=== PATIENT | male | born 1975 | race Caucasian/White ===

== ENCOUNTER → 2020-08-27 09:50 | Outpatient (CLI) | payer OTHER, SELFPAY ==
--- NOTE | 2020-08-27 09:56 | XR_ITS ---
PROCEDURE: XR CERVICAL SPINE 4V CLINICAL INDICATION: neck pain Right-sided neck pain COMPARISON: No exams were available for comparison FINDINGS: No fracture or dislocation. No lytic or blastic change. There is normal mineralization. Normal alignment. There is degenerative disc disease at C5-C6. There is foraminal narrowing on the right at C5-C6 from uncovertebral and facet hypertrophy. Other findings:None. IMPRESSION: Degenerative disc disease and right-sided foraminal narrowing at C5-C6 Dictated by: Inder Toledo MD 08/27/2020 11:10 Inder Toledo MD in [place] 08/27/2020 11:10
--- NOTE | 2020-08-27 09:56 | XR_ITS ---
PROCEDURE: XR CHEST 2V CLINICAL HISTORY: dyspnea, smoker COMPARISON: CR [id number] [id number] VIEWS from 10/13/2013 CR CXR CHEST(2 VIEWS-NOT PORTABLE) from 10/13/2013 FINDINGS: The cardiomediastinal silhouette and pulmonary vascularity are within normal limits. The lungs are clear without infiltrates, suspicious nodules, or pleural effusions. COPD with emphysematous changes which has slightly progressed compared to the previous exam. No acute bony anomalies. IMPRESSION: COPD with emphysema which appears progressed Dictated by: Inder Toledo MD 08/27/2020 11:08 Inder Toledo MD in [place] 08/27/2020 11:08
[2020-08-27 16:19] LABS: Basophils # 0.1 K/mm3 (0-0.2); Basophils % 0.6 % (0.1-2.0); Eosinophils # 0.1 K/mm3 (0.0-0.4); Eosinophils % 1.5 % (0.1-12.0); Hematocrit 45.5 % (42.0-52.0); Hemoglobin 15.3 g/dL (14.1-18.0); Lymphocytes # 2.7 K/mm3 (0.7-4.5); Lymphocytes % 27.8 % (10-50); Mean Corpuscular HGB Conc 33.5 g/dL (31.8-35.4); Mean Corpuscular Hemoglobin 28.2 pg (27.0-31.2); Mean Corpuscular Volume 84.2 fl (80-94); Mean Platelet Volume 9.7 fl (7.4-10.4); Monocytes # 0.4 K/mm3 (0.1-1.0); Monocytes % 4.1 % (1.7-9.3); Neutrophils # 6.4 K/mm3 (1.8-7.8); Platelet Count 297 K/mm3 (142-424); Red Cell Distribution Width 14.1 % (11.5-17.5); White Blood Count 9.6 K/mm3 (4.8-10.8)
[2020-08-27 16:51] LABS: Chloride 103 mmol/L (98-107)
[2020-08-27 16:52] LABS: Sodium 141 mmol/L (136-145)
[2020-08-27 16:53] LABS: Hemoglobin A1C 5.5 % (4.0-6.0)
[2020-08-27 16:54] LABS: Alanine Aminotransferase 29 U/L (12-78); Alkaline Phosphatase 105 U/L (38-126); Aspartate Amino Transferase 31 U/L (17-59); Bilirubin,Total 0.4 mg/dl (0.2-1.3); Blood Urea Nitrogen 13 mg/dl (9-20); Carbon Dioxide 25 mmol/L (22.0-30.0); Estimated Glomerular Filt Rate 123 ml/min (>60); GFR (African American) 148 ML/MIN (>60)
[2020-08-27 16:55] LABS: Albumin Level 4.8 g/dl (3.5-5.0); Albumin/Globulin Ratio 1.3 (1.1-1.8); Calcium 9.5 mg/dl (8.4-10.2); Chol/HDL Ratio 5.7 (1-3.5); Cholesterol 147 mg/dl (140-200); Globulin 3.8 g/dL (1.3-3.2); Glucose 132 mg/dl (74-100); HDL Cholesterol 26 mg/dl (40-60); Total Protein,Serum 8.6 g/dl (6.3-8.2); Triglycerides 164 mg/dl (30-150); VLDL Cholesterol 33 mg/dL (0-40)
[2020-08-27 17:06] LABS: Direct LDL Cholesterol 83.95 mg/dL (100-129)
[2020-08-27 17:24] LABS: Thyroid Stimulating Hormone 0.98 uIU/mL (0.465-4.68)
[2020-08-27 19:46] LABS: Free T4 (Free Thyroxine) 1.19 ng/dl (0.78-2.19)
[2020-08-27 21:19] LABS: 25-OH Vitamin D, Total 40.8 ng/mL (30-100)
[2020-08-29 08:51] LABS: HIV Screen 4th Generation wRfx Non Reactive (Non Reactive)
[2020-08-29 12:41] LABS: Hep A Ab, IgM Negative (Negative); Hepatitis B Core Antibody IgM Negative (Negative); Hepatitis B Surface Antigen Negative (Negative); Hepatitis C Antibody >11.0 s/co ratio (0.0-0.9)
== END ==
PROVIDERS: PCP Physician Assistant; Visit Provider Physician Assistant
DX: R07.9 Chest pain, unspecified (principal); M54.2 Cervicalgia; R06.00 Dyspnea, unspecified; R51.9 Headache, unspecified; R73.9 Hyperglycemia, unspecified
CPT/HCPCS: 71046; 72050; 80053; 80061; 80074; 82306; 83036; 84439; 84443; 85025; 86703; G0432

== ENCOUNTER → 2020-09-04 09:26 | Outpatient (CLI) | payer OTHER, SELFPAY ==
--- NOTE | 2020-09-04 09:27 | CA_ITS ---
APPROVED REPORT EXAM: Comprehensive 2D, Doppler, and color-flow Echocardiogram Financial Reporting Accountant: Kristen Olea CRT Ht: 5 ft 8 in Wt: 120lbs BSA: 1.64 BP: 102/76 mmHg Indications: Chest Pain, IV DRUG USE HISTORY, SMOKER 2D Dimensions LVOT 2.18 cm (M/F) 1.5-2.5 LA Volume 29.50 mL LA Volume Index 17.90 mL/m2 (M/F) 16-34 M-Mode Dimensions RVDd 2.90 cm (0.9-2.6) LA Diam 2.55 cm (1.9-4.0) LVDd 4.71 cm (3.5-5.7) Ao Diam 4.34 cm (2.0-3.7) LVDs 3.06 cm (3.5-5.7) IVSd 0.56 cm (0.6-1.1) PWd 0.72 cm (0.6-1.1) EF (Teich) 64.30% FS 35.00% EDV (Teich) 102.90 mL TAPSE 1.98 (<1.7) ESV (Teich) 36.70 mL LV Diastology E Decel Time 287.00 (160-240 msec) E/A Ratio 1.38 MED E' 13.40 (< 7 cm/sec) MED A' 11.00 cm/s E'/MED E' Ratio 7.03 (>14) LAT E' 15.30 (<10 cm/sec) LAT A' 9.40 cm/s E/LAT E' Ratio 6.16 (>14) Aortic Valve AO Peak GR. 8.20 mmHg Mitral Valve MV E Max Mario. 94.00 (40-130 cm/s) MV A Velocity 69.00 (40-130 cm/s) E/A Ratio 1.38 MV Decel. Time 287.00 (160-240 ms) MV PHT 84.00 ms Tricuspid Valve TR P. Velocity 167.00 cm/s RAP Estimate 10.00 mmHg RVSP 21.20 mmHg Left Ventricle Left atrium is normal size, left ventricle is normal size, there is no concentric left ventricular hypertrophy, visually estimated ejection fraction 55% with no regional wall motion abnormality, diastolic parameters are within normal range. Right Ventricle Right atrium and right ventricle are normal size and contractility. Aortic Valve Aortic valve is minimally thickened and fibrosed, there is no aortic stenosis or aortic insufficiency. Mitral Valve Mitral valve grossly normal, there is trace mitral regurgitation. Tricuspid Valve Cuspid valve grossly normal, there is trace tricuspid regurgitation, tricuspid regurgitation jet velocity is inadequate for calculation of the right ventricular systolic pressure. Pulmonic Valve Pulmonic valve is poorly visualized. Great Vessels Aortic root is normal size. Pericardium No significant pericardial effusion noted. Conclusion 1. Normal left ventricular size, preserved left ventricular systolic function, visually estimated ejection fraction 55% with no regional wall motion abnormality, diastolic parameters are within normal range. 2. Trace mitral and tricuspid regurgitation. 3. No significant pericardial effusion noted. Electronically signed by : Terry Kolb, 09/04/2020 14:51:56
--- NOTE | 2020-09-04 09:27 | CA_ITS ---
APPROVED REPORT Exam: Exercise Treadmill Technologist: Clarissa Olivares, Ht: 5 ft 8 in Wt: 120 lbs BSA: 1.64 m2 HR: 75 bpm BP: 113/63 mmHg Rhythm: NSR, FREQUENT PAC IN A BIGEMINAL PATTERN (INTERMITTENT), RIGHTWARD AXIS, LVH Medical History Medications: Mobic,,,,, ZYRTEC,,,,, BuPRenorphin-naloxone,,,,, Allergies: PCN Cardiac Risk Factors: FHX of CAD Stress Test Details Test: Wilmar HR Resting HR: 92 bpm Max Heart Rate (APMHR): 176.349629 bpm Max HR Achieved: 120 bpm Target HR (85% APMHR): 149.429097 bpm % of APMHR: 68.18 Recovery HR: 72 bpm BP Resting BP: 117/80 mmHg Max BP: 148/82 mmHg Recovery BP: 118.0/74.0 mmHg ECG Resting ECG: NSR, FREQUENT PAC IN A BIGEMINAL PATTERN (INTERMITTENT), RIGHTWARD AXIS, LVH Clinical Exercise duration: 04:07 min Highest Stage Achieved: Exercise capacity: 7.0 METs Stress ECG Conclusion EXERCISED 4:07 ON WILMAR PROTOCOL, STOPPING DUE TO SOA. MAX WO=602. 68% OF PM. 148/82 MAX BP. METS=7.0. TEST STOPPED DUE TO SOA. PT HAD NO CP. IN RECOVERY THERE ARE FREQUENT PACS WITH PERIODS OF ATRIAL BIGEMENY ANF TRIGEMINY. RARE PVC, ALSO IN RECOVERY. 0.5-0.75MM SLIGHTLY UPSLOPING ST DEPRESSION INFERIORLY AND 0.5 MM LATERALLY IN RECOVERY. WITHIN NORMAL GXT TO HR ACHIEVED (68% OF PM) POOR EXERCISE TOLERANCE. GXT ONLY (NO IMAGING) Test Summary RECOVERY 05:19 0.0 0.0 71 . 118/ 74 . . REST . . . . . . . Standing REST 04:02 0.0 0.0 92 . 117/ 80 . . Stage 1 01:00 10.0 1.7 97 . . . . Stage 1 02:00 10.0 1.7 106 . . . . Stage 1 03:00 10.0 1.7 105 . 146/ 76 . . Stage 2 01:00 12.0 2.5 117 . . . . Stage 2 01:07 12.0 0.0 115 . . . Stop exercise at 04:07 RECOVERY 01:00 0.0 0.0 90 . 148/ 82 . . RECOVERY 02:00 0.0 0.0 65 . 148/ 82 . . RECOVERY 03:00 0.0 0.0 67 . 141/ 76 . . RECOVERY 04:00 0.0 0.0 75 . 128/ 67 . . RECOVERY 05:00 0.0 0.0 68 . 128/ 67 . . RECOVERY 05:19 0.0 0.0 71 . 118/ 74 . . Electronically signed by : Jorge Gonzalez, 09/04/2020 21:30:57
== END ==
PROVIDERS: PCP Physician Assistant; Visit Provider Physician Assistant
DX: R07.9 Chest pain, unspecified (principal); G47.33 Obstructive sleep apnea (adult) (pediatric); R06.83 Snoring; G47.10 Hypersomnia, unspecified
CPT/HCPCS: 93017; 93306; 95806

== ENCOUNTER → 2020-09-15 11:17 | Outpatient (CLI) | payer OTHER, SELFPAY ==
[2020-09-17 19:48] LABS: HCV Genotype Charge YES; Hepatitis C Genotype 1a (.)
== END ==
PROVIDERS: Visit Provider Physician Assistant
DX: R76.8 Other specified abnormal immunological findings in serum (principal)
CPT/HCPCS: 36415; 87522; 87902

== ENCOUNTER 2020-09-22 08:00 | Outpatient (RCR) | payer OTHER, SELFPAY ==
--- NOTE | 2020-09-05 08:48 | HMH.PTOPEV ---
PT Outpatient Evaluation Rehab PT Outpatient Evaluation Start: 09/05/20 07:56 Freq: Status: Active Protocol: Document 09/05/20 07:56 FIORELLA (Rec: 09/05/20 08:48 [id number]) Electronically Signed By Jad Alcaraz, JUAN 09/05/20 07:56 Outpatient Therapy Subjective History Subjective History Pt. is a 44 year old male who presents to outpatient PT clinic w/ c/o of subacute on chronic and intermittent/activity dependent R-sided cervical/ shldr./RUE P! that has progressively worsened 1 month ago. Pt. reports initial onset of symptoms was 3 years ago after falling out of a barn, but states symptoms went away. Pt. reports symptoms have worsened in the last month and blames what he has to do at work. 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 Pt. also complains of GUTIERREZ's when symptoms worsen. Pt. describes symptoms as a sharp ache in the shoulder w/ tingling that shoots all the way down to the digits. Pt. reports symptoms worsen w/ lifting weighted objects, dressing, and driving. Pt. reports having some symptom relief w/ OTC Tylenol. Recent diagnostic imaging positive for cervical DDD w/ right-sided foraminal narrowing at C5-C6. Pt. denies having injections for current pathology. Pt. RTMD next wk. for a periodic check-up. Current medications include Tylenol and Suboxone. PMH includes pre-hypotensive. Chief Complaint Pain,Paresthesia,Weakness, Decreased Business Analysis Specialist Strength Symptom Type Ache,Sharp,Stabbing,Numbness, Tingling,Shooting Symptoms Relieved By Rest/Positioning,OTC Meds Symptoms Aggravated By Bending/Stooping,Physical Activity,Twisting,Lifting Prior Functional Cuevas
== END 2020-10-20 15:10 | disposition home or self-care (01) ==
LOC: PT.CARL 08:00
PROVIDERS: PCP Physician Assistant; Visit Provider Physician Assistant
DX: M54.12 Radiculopathy, cervical region (principal)
CPT/HCPCS: 97012; 97110; 97140; 97163

== ENCOUNTER → 2020-09-24 08:05 | Outpatient (CLI) | payer OTHER, SELFPAY ==
[2020-09-24 08:54] LABS: Basophils # 0.1 K/mm3 (0-0.2); Basophils % 0.9 % (0.1-2.0); Eosinophils # 0.4 K/mm3 (0.0-0.4); Eosinophils % 6.7 % (0.1-12.0); Hematocrit 39.3 % (42.0-52.0); Hemoglobin 13.2 g/dL (14.1-18.0); Lymphocytes # 3.2 K/mm3 (0.7-4.5); Lymphocytes % 48.9 % (10-50); Mean Corpuscular HGB Conc 33.6 g/dL (31.8-35.4); Mean Corpuscular Hemoglobin 27.8 pg (27.0-31.2); Mean Corpuscular Volume 82.7 fl (80-94); Mean Platelet Volume 9.3 fl (7.4-10.4); Monocytes # 0.3 K/mm3 (0.1-1.0); Monocytes % 4.8 % (1.7-9.3); Neutrophils # 2.6 K/mm3 (1.8-7.8); Neutrophils % 38.7 % (37.0-80.0); Platelet Count 192 K/mm3 (142-424); Red Blood Count 4.75 M/mm3 (4.60-6.20); Red Cell Distribution Width 13.8 % (11.5-17.5); White Blood Count 6.6 K/mm3 (4.8-10.8)
[2020-09-24 09:01] LABS: Prothrombin Time 11.3 seconds (10.1-12.5)
[2020-09-24 09:02] LABS: INR 0.95 (0.9-1.1)
[2020-09-24 09:20] LABS: Chloride 109 mmol/L (98-107); Potassium 4.4 mmoL/L (3.5-5.1); Sodium 140 mmol/L (136-145)
[2020-09-24 09:22] LABS: Alanine Aminotransferase 24 U/L (12-78); Alkaline Phosphatase 90 U/L (38-126); Anion Gap 13.4 mEq/L (5-15); Aspartate Amino Transferase 30 U/L (17-59); Bilirubin,Total 0.3 mg/dl (0.2-1.3); Blood Urea Nitrogen 15 mg/dl (9-20); Carbon Dioxide 22 mmol/L (22.0-30.0); Estimated Glomerular Filt Rate 146 ml/min (>60); GFR (African American) 177 ML/MIN (>60)
[2020-09-24 09:23] LABS: Albumin Level 4.4 g/dl (3.5-5.0); Albumin/Globulin Ratio 1.3 (1.1-1.8); Calcium 9.3 mg/dl (8.4-10.2); Globulin 3.5 g/dL (1.3-3.2); Glucose 112 mg/dl (74-100); Total Protein,Serum 7.9 g/dl (6.3-8.2)
[2020-09-25 06:11] LABS: HIV Screen 4th Generation wRfx Non Reactive (Non Reactive)
[2020-09-25 10:37] LABS: Hep A Ab, IgM Negative (Negative); Hep A Ab, Total Negative (Negative); Hep B Core Ab, Total Negative (Negative); Hep B Surface Ab, Qual Non Reactive (.); Hepatitis B Surface Antigen Negative (Negative); Hepatitis C Antibody >11.0 s/co ratio (0.0-0.9)
[2020-09-26 06:19] LABS: ALT (SGPT) P5P 25 IU/L (0-55); Alpha 2-Macroglobulins, Qn 187 mg/dL (110-276); Apolipoprotein A-1 95 mg/dL (101-178); Bilirubin, Total 0.2 mg/dL (0.0-1.2); Fibrosis Score 0.14 (0.00-0.21); GGT 23 IU/L (0-65); Haptoglobin 145 mg/dL (23-355); Necroinflammat Activity Grade A0-No activity (.); Necroinflammat Activity Score 0.09 (0.00-0.17)
[2020-09-28 00:05] LABS: HCV Genotype Charge YES; Hepatitis C Genotype 1a (.)
== END ==
PROVIDERS: Visit Provider Physician Assistant
DX: B19.20 Unspecified viral hepatitis C without hepatic coma (principal)
CPT/HCPCS: 36415; 80053; 81596; 85025; 85610; 86703; 86704; 86706; 86708; 87340; 87380; 87522; 87902; G0432

== ENCOUNTER 2020-10-18 06:04 | Emergency (ER) | payer OTHER, SELFPAY ==
[2020-10-18 06:20] VITALS: BP 123/88; PULSE 80; RESP 18; TEMP 37.7; O2SAT 100; BMI 18.4
[2020-10-18 07:26] LABS: Basophils % 0.3 % (0.1-2.0); Eosinophils % 0.1 % (0.1-12.0); Hematocrit 46.6 % (42.0-52.0); Hemoglobin 14.9 g/dL (14.1-18.0); Lymphocytes # 1.6 K/mm3 (0.7-4.5); Lymphocytes % 9.8 % (10-50); Mean Corpuscular HGB Conc 32.1 g/dL (31.8-35.4); Mean Corpuscular Volume 87.3 fl (80-94); Monocytes # 0.4 K/mm3 (0.1-1.0); Monocytes % 2.7 % (1.7-9.3); Neutrophils # 14.3 K/mm3 (1.8-7.8); Neutrophils % 87.1 % (37.0-80.0); Platelet Count 426 K/mm3 (142-424); Red Blood Count 5.34 M/mm3 (4.60-6.20); Red Cell Distribution Width 13.5 % (11.5-17.5); White Blood Count 16.4 K/mm3 (4.8-10.8)
[2020-10-18 07:28] LABS: Chloride 105 mmol/L (98-107)
[2020-10-18 07:29] LABS: Potassium 3.6 mmoL/L (3.5-5.1); Sodium 144 mmol/L (136-145)
[2020-10-18 07:31] LABS: Alanine Aminotransferase 16 U/L (12-78); Alkaline Phosphatase 121 U/L (38-126); Amylase 68 U/L (30-110); Aspartate Amino Transferase 29 U/L (17-59); Bilirubin,Total 0.5 mg/dl (0.2-1.3); Blood Urea Nitrogen 15 mg/dl (9-20); Carbon Dioxide 24 mmol/L (22.0-30.0); Creatinine Clearance Estimated 108 mL/min (50-200); Estimated Glomerular Filt Rate 123 ml/min (>60); GFR (African American) 148 ML/MIN (>60)
[2020-10-18 07:32] LABS: Albumin Level 4.9 g/dl (3.5-5.0); Calcium 9.8 mg/dl (8.4-10.2); Globulin 4.7 g/dL (1.3-3.2); Glucose 154 mg/dl (74-100); Lactic Acid 1.1 mmol/L (0.7-2.1); Lipase 30 U/L (23-300); Total Protein,Serum 9.6 g/dl (6.3-8.2)
[2020-10-18 07:33] LABS: Ammonia < 9 umol/L (9-30)
[2020-10-18 07:35] LABS: MANUAL DIFFERENTIAL MANUAL DIFFERENTIAL (MANUAL DIFF)
[2020-10-18 07:38] LABS: C-Reactive Protein 22.2 mg/L (0-4)
[2020-10-18 07:48] LABS: Troponin I < 0.01 ng/ml (0.00-0.034)
[2020-10-18 08:00] VITALS: BP 122/68; PULSE 70; RESP 20; O2SAT 99
[2020-10-18 08:02] LABS: Lymphocytes % 8 % (10-50); Monocytes % 2 % (2-9); Neutrophils % 90 % (42-76); Platelet Estimate Slight Increase; RBC Morphology Normal; Total Cells Counted 100
[2020-10-18 08:03] LABS: Ethyl Alcohol < 10 mg/dl (0-10)
[2020-10-18 08:05] LABS: Erythrocyte Sedimentation Rate 15 mm/hr (0-15)
--- NOTE | 2020-10-18 08:05 | CT_ITS ---
PROCEDURE INFORMATION: Exam: CT Abdomen And Pelvis With Contrast Exam date and time: 10/18/2020 8:05 AM Age: 44 years old Clinical indication: Abdominal pain; Epigastric; Additional info: Abd pain, n/v, hep c TECHNIQUE: Imaging protocol: Computed tomography of the abdomen and pelvis with contrast. Radiation optimization: All CT scans at this facility use at least one of these dose optimization techniques: automated exposure control; mA and/or kV adjustment per patient size (includes targeted exams where dose is matched to clinical indication); or iterative reconstruction. Contrast material: ISOVUE; Contrast volume: 75 ml; Contrast route: IV; COMPARISON: CR XR CHEST 2V 08/27/2020 9:58 AM FINDINGS: Lungs: 1.5 cm nodular focus of opacity in the right lower lobe which may represent a focal infiltrate. There is also slight ground-glass opacity in the left lower lobe. Liver: Normal. No mass. Gallbladder and bile ducts: Normal. No calcified stones. No ductal dilation. Pancreas: Normal. No ductal dilation. Spleen: Normal. No splenomegaly. Adrenal glands: Normal. No mass. Kidneys and ureters: 1.2 cm cyst in the midportion of the left kidney. Stomach and bowel: Unremarkable. No obstruction. No mucosal thickening. Appendix: The appendix is seen and is normal in appearance. Intraperitoneal space: Unremarkable. No free air. No significant fluid collection. Vasculature: Unremarkable. No abdominal aortic aneurysm. Lymph nodes: Unremarkable. No enlarged lymph nodes. Urinary bladder: Unremarkable as visualized. Reproductive: Unremarkable as visualized. Bones/joints: Unremarkable. No acute fracture. Soft tissues: Unremarkable. IMPRESSION: 1. 1.5 cm nodular focus of opacity in the right lower lobe which may represent a focal infiltrate. There is also slight ground-glass opacity in the left lower lobe. 2. No definite evidence of acute abdominal or pelvic pathology. Remainder of findings as described above. COMMENTS: Consistent with the [employer]'s Incidental Findings Committee white paper (J Am Jarocho Radiol 2018): Any incidental renal lesion less than 1 cm or classified as too small to characterize, or any incidental cystic renal lesion characterized as simple-appearing, is likely benign. No follow-up imaging is recommended for these lesions per consensus recommendations based on imaging criteria.
--- NOTE | 2020-10-18 08:09 | HMH.EDNVD ---
ED Disposition Clinical Impression: Gastroenteritis, Tobacco user Hepatitis C Qualifiers: Viral hepatitis chronicity: acute Hepatic coma status: without hepatic coma Qualified Code(s): B17.10 - Acute hepatitis C without hepatic coma Disposition: Home, Self-Care Condition on Discharge: Good Instructions: DI for Vomiting -- Adult Additional Instructions: fluids and call pcp tuesday Prescriptions: ondansetron HCL [Zofran 4mg Tab] 4 mg PO TID #30 tab Transmission Status: Pending to [employer] Referrals: Carly Joiner PA [Primary Care Provider] - - Critical Care Critical Care Time: No Attestation: On 10/18/20, the high probability of a clinically significant, sudden or life threatening deterioration of the following system(s) required my full and direct attention, intervention and personal management. The time I documented below is in addition to time spent performing reported procedures but includes the following listed in this critical care notation. Medical Decision Making - Medical Records Medical records reviewed: Yes: I reviewed the patient's medical records. - Jake Inquiry Pt receiving controlled substance: No Vital Signs: 10/18/20 06:20 Temperature 100 F H Temperature Source Oral Pulse Rate [Right Brachial] 80 Respiratory Rate 18 Blood Pressure [Right Arm] 123/88 Blood Pressure Mean [Right Arm] 99 Blood Pressure Source [Right Arm] Automatic Cuff Blood Pressure Position [Right Arm] Sitting 02 Sat by Pulse Oximetry 100 Oxygen Delivery Method Room Air - Lab Data Lab results reviewed: Yes: I reviewed the patient's lab results. Lab Results 10/18/20 07:18: WBC 16.4 H, RBC 5.34, Hgb 14.9, Hct 46.6, MCV 87.3, MCH 28.0, MCHC 32.1, RDW 13.5, Plt Count 426 H, MPV 8.0, Neut % (Auto) 87.1 H, Lymph % (Auto) 9.8 L, [place] % (Auto) 2.7, Eos % (Auto) 0.1, Baso % (Auto) 0.3, Neut # (Auto) 14.3 H, Lymph # (Auto) 1.6, [place] # (Auto) 0.4, Eos # (Auto) 0.0, Baso # (Auto) 0.0, Total Counted 100, Neutrophils % (Manual) 90 H, Lymphocytes % (Manual) 8 L, Monocytes % (Manual) 2, Platelet Estimate Slight increase, RBC Morphology Normal, ESR 15 10/18/20 07:18: Sodium 144, Potassium 3.6, Chloride 105, Carbon Dioxide 24, BUN 15, Creatinine 0.70, Estimated Creat Clear 108, Estimated GFR 123, Est GFR ( Amer) 148, Glucose 154 H, Calcium 9.8, Total Bilirubin 0.5, AST 29, ALT 16, Alkaline Phosphatase 121, Troponin I < 0.01, C-Reactive Protein 22.2 H, Total Protein 9.6 H, Albumin 4.9, Globulin 4.7 H, Albumin/Globulin Ratio 1.0 L, Amylase 68, Lipase 30 10/18/20 07:18: Ammonia < 9 L 10/18/20 07:18: Lactate 1.1 10/18/20 07:18: Plasma/Serum Alcohol < 10 Result diagrams: 10/18/20 07:18 10/18/20 07:18 Orders (Tests/Meds): ED MEDICATIONS Generic Name Dose Route Start Last Admin Trade Name Freq PRN Reason Stop Dose Admin Sodium Chloride 1,000 mls @ 999 mls/hr 10/18/20 09:17 10/18/20 09:21 Sod Chlor 0.9% 1000ml Bag IV 10/18/20 10:17 999 mls/hr .Q1H1M ONE Administration Sodium Chloride 8 ml 10/18/20 08:09 Sodium Chloride 0.9% 10ml Vial IV 11/17/20 08:08 NEEDED PRN dilute pepcid Discontinued Medications Generic Name Dose Route Start Last Admin Trade Name Freq PRN Reason Stop Dose Admin Diatrizoate Meglum/Diatrizoate Sod 30 ml 10/18/20 06:30 10/18/20 08:08 Diatrizoate Zaynab 66% & Diatrizoate Na 10% 30ml Udc PO 10/18/20 06:31 Not Given ONCE ONE Famotidine 20 mg 10/18/20 08:09 10/18/20 08:12 Famotidine 20mg/2ml Vial IV 10/18/20 08:10 20 mg ONCE ONE Administration Sodium Chloride 500 mls @ 999 mls/hr 10/18/20 08:15 Sod Chlor 0.9% 1000ml Bag IV 10/18/20 08:45 .Q31M TIMA Sodium Chloride 500 mls @ 999 mls/hr 10/18/20 08:15 10/18/20 08:17 Sod Chlor 0.9% 1000ml Bag IV 10/18/20 08:45 999 mls/hr .Q31M TIMA Administration Iopamidol 75 ml 10/18/20 09:05 10/18/20 09:06 Iopamidol-370 (76%);100ml Bottle IV 10/18/20 09:06 75 ml ONCE
[2020-10-18 08:30] VITALS: BP 107/58; PULSE 68; RESP 18; O2SAT 99
--- NOTE | 2020-10-18 08:30 | PC.NURSE ---
speaking with Harvey concerning radiology's concern with injecting contrast through pt's EJ. [facility] stated that there was no reason for concern and rad can hand inject contrast into EJ.
--- NOTE | 2020-10-18 08:38 | XR_ITS ---
PROCEDURE INFORMATION: Exam: XR Chest Exam date and time: 10/18/2020 8:38 AM Age: 44 years old Clinical indication: Pain; Other: Epigastric; Additional info: Epigastric pain TECHNIQUE: Imaging protocol: XR of the chest. Views: 2 views. COMPARISON: CR XR CHEST 2V 08/27/2020 9:58 AM FINDINGS: Lungs: Hyperinflation suggestive of COPD. No evidence of acute pulmonary process. The focal area of airspace opacity on the CT is not well seen on the chest x-ray. Pleural spaces: Unremarkable. No pleural effusion. No pneumothorax. Heart/Mediastinum: Unremarkable. No cardiomegaly. Bones/joints: Unremarkable. IMPRESSION: Hyperinflation suggestive of COPD. No evidence of acute pulmonary process. The focal area of airspace opacity on the CT is not well seen on the chest x-ray.
--- NOTE | 2020-10-18 08:40 | PC.NURSE ---
to ct per wheelchair. pt states improvement in symptoms
[2020-10-18 09:28] LABS: Anion Gap 18.6 mEq/L (5-15)
[2020-10-18 09:30] VITALS: BP 107/64; PULSE 72; RESP 20; O2SAT 99
[2020-10-18 09:55] VITALS: BP 107/65; PULSE 78; RESP 16; TEMP 36.6; O2SAT 97
[2020-10-18 10:02] LABS: Procalcitonin 0.034 ng/mL (0.0-2.0)
== END 2020-10-18 09:58 | disposition home or self-care (01) ==
PROVIDERS: Emergency Provider Emergency Medicine; PCP Physician Assistant
DX: B17.10 Acute hepatitis C without hepatic coma (principal); K52.9 Noninfective gastroenteritis and colitis, unspecified; F17.210 Nicotine dependence, cigarettes, uncomplicated
CPT/HCPCS: 71046; 74177; 80053; 82140; 82150; 83605; 83690; 84145; 84484; 85007; 85025; 85651; 86140; 87040; 96365; 96367; 96375; 99282; J2405; Q9967

== ENCOUNTER → 2020-11-10 11:19 | Outpatient (CLI) | payer OTHER, SELFPAY | PROVIDERS: Visit Provider Nurse Practitioner Family | DX: Z01.812 Encounter for preprocedural laboratory examination (principal); Z20.822 Contact with and (suspected) exposure to COVID-19 | CPT/HCPCS: 36415; 80048; 85025; C9803; U0003; U0005 ==

== ENCOUNTER → 2020-11-10 11:37 | Outpatient (CLI) | payer OTHER, SELFPAY ==
[2020-11-10 11:44] LABS: Basophils # 0.1 K/mm3 (0-0.2); Basophils % 0.8 % (0.1-2.0); Eosinophils # 0.6 K/mm3 (0.0-0.4); Eosinophils % 7.5 % (0.1-12.0); Hematocrit 46.3 % (42.0-52.0); Lymphocytes # 3.7 K/mm3 (0.7-4.5); Lymphocytes % 48.9 % (10-50); Mean Corpuscular HGB Conc 32.5 g/dL (31.8-35.4); Mean Corpuscular Volume 89.3 fl (80-94); Mean Platelet Volume 7.6 fl (7.4-10.4); Monocytes # 0.3 K/mm3 (0.1-1.0); Monocytes % 3.7 % (1.7-9.3); Neutrophils # 2.9 K/mm3 (1.8-7.8); Neutrophils % 39.1 % (37.0-80.0); Platelet Count 271 K/mm3 (142-424); Red Blood Count 5.18 M/mm3 (4.60-6.20); Red Cell Distribution Width 13.8 % (11.5-17.5); White Blood Count 7.5 K/mm3 (4.8-10.8)
[2020-11-10 12:25] LABS: Chloride 101 mmol/L (98-107); Potassium 4.2 mmoL/L (3.5-5.1); Sodium 141 mmol/L (136-145)
[2020-11-10 12:28] LABS: Anion Gap 17.2 mEq/L (5-15); Blood Urea Nitrogen 14 mg/dl (9-20); Calcium 9.6 mg/dl (8.4-10.2); Carbon Dioxide 27 mmol/L (22.0-30.0); Estimated Glomerular Filt Rate 123 ml/min (>60); GFR (African American) 148 ML/MIN (>60); Glucose 125 mg/dl (74-100)
== END ==
PROVIDERS: Nurse Practitioner Family; PCP Physician Assistant; Visit Provider Physician Assistant
DX: Z01.812 Encounter for preprocedural laboratory examination (principal); Z20.822 Contact with and (suspected) exposure to COVID-19; R06.83 Snoring
CPT/HCPCS: 36415; 80048; 85025; 95806; C9803; U0003; U0005

== ENCOUNTER 2020-11-11 07:53 | Day surgery (SDC) | payer OTHER, SELFPAY ==
[2020-11-11] VITALS (12 sets, daily range): BP systolic 85–123; BP diastolic 45–77; PULSE 47–87; RESP 16–18; TEMP 36.9; O2SAT 94–100; BMI 18.7
--- NOTE | 2020-11-11 07:27 | IR_ITS ---
APPROVED REPORT Patient Location: Outpatient Labor Expediter: JULIAN Garcia RT (R) PROCEDURES Right internal jugular vein access Right heart catheterization INDICATION Pulmonary hypertension Informed consent was obtained prior to the procedure. COMPLICATIONS None Estimated Blood Loss: Less than 10 mls TECHNIQUE One percent lidocaine used to anesthetize the right anterior aspect of the wrist. The right radial artery was accessed via the Seldinger technique. A 6 Latvian sheath was placed in the right radial artery. 2.5 mg of verapamil, 800 mcg of nitroglycerin, 1mg Lidocaine and 5000 U Heparin were given through the arterial sheath. The trap catheter was also used to perform left heart catheterization, left ventriculogram and selective coronary angiogram. At the end of the procedure the sheath was removed good hemostasis was achieved using Traclet band, patient was transferred to the postop holding area in stable condition. ANGIOGRAPHIC RESULTS Right atrial pressure 15 mmHg Right ventricular pressure 37/18 mmHg Pulmonary artery pressure 37/24 mmHg Pulmonary occlusion pressure 22 mmHg Right atrial saturation 74% Pulmonary artery saturation 73% IMPRESSION Mild pulmonary hypertension Evidence of left-sided diastolic dysfunction creating biventricular pressure elevation PLAN 1. Treatment of underlying diastolic dysfunction 2. Increase Lasix to 40 mg twice daily and increase Aldactone to 50 mg twice daily Electronically signed by : Joni Morelos MD 11/11/2020 11:31:31
== END 2020-11-11 13:43 | disposition home or self-care (01) ==
LOC: CATHLAB 07:54
PROVIDERS: PCP Physician Assistant; Visit Provider Internal Medicine
DX: I25.118 Atherosclerotic heart disease of native coronary artery with other forms of angina pectoris (principal); I27.20 Pulmonary hypertension, unspecified; I49.1 Atrial premature depolarization; R94.39 Abnormal result of other cardiovascular function study; F17.210 Nicotine dependence, cigarettes, uncomplicated; B17.10 Acute hepatitis C without hepatic coma; Z82.49 Family history of ischemic heart disease and other diseases of the circulatory system
CPT/HCPCS: 93460; 99152; C1725; C1769; J1644; Q9967

== ENCOUNTER 2020-11-21 07:00 | Outpatient (RCR) | payer OTHER, SELFPAY ==
--- NOTE | 2020-10-29 14:43 | HMH.PTOPEV ---
PT Outpatient Evaluation Rehab PT Outpatient Evaluation Start: 10/29/20 14:03 Freq: Status: Active Protocol: Document 10/29/20 14:03 FIORELLA (Rec: 10/29/20 14:41 [id number]) Electronically Signed By Jad Alcaraz, PT 10/29/20 14:03 Outpatient Therapy Subjective History Subjective History Pt. is a 44 year old male who presents to outpatient PT clinic w/ c/o chronic and intermittent/ activity dependent R-sided cervical/shldr./RUE P! that has progressively worsened since July 2020. Pt. reports initial onset of symptoms was 3 years ago after falling out of a barn, but states symptoms went away. Pt. reports symptoms have worsened in the last few months and blames what he has to do at work. 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 Pt. also complains of GUTIERREZ's when symptoms worsen. Pt. describes symptoms as a sharp ache in the shoulder w/ tingling that shoots all the way down to the digits, but states not having radicular P! for awhile now. Pt. reports having symptom relief w/ previous Physical Therapy treatment. Pt. also reports having some symptom relief w/ OTC Tylenol. Recent diagnostic imaging positive for cervical DDD w/ right-sided foraminal narrowing at C5-C6. Pt. denies having injections for current pathology. Current medications include Tylenol and Suboxone. PMH includes pre-hypotensive. Chief Complaint Pain,Paresthesia Symptom Type Ache,Dull,Other Symptoms Relieved By Rest/Positioning,OTC Meds, Activity Symptoms Aggravated By Physical Activity,Lifting Prior Functional Limitations None Current Functional Limitations Lifting,Recreation Activity Symptom Description Intermittent,Activity
== END 2020-12-17 11:53 | disposition home or self-care (01) ==
LOC: PT.CARL 07:00
PROVIDERS: PCP Physician Assistant; Visit Provider Physician Assistant
DX: M54.12 Radiculopathy, cervical region (principal)
CPT/HCPCS: 97110; 97140; 97163

== ENCOUNTER → 2020-11-26 09:52 | Outpatient (CLI) | payer OTHER, SELFPAY ==
[2020-11-26 11:05] LABS: Alanine Aminotransferase 14 U/L (12-78); Albumin Level 4.5 g/dl (3.5-5.0); Albumin/Globulin Ratio 1.3 (1.1-1.8); Alkaline Phosphatase 79 U/L (38-126); Anion Gap 10.3 mEq/L (5-15); Aspartate Amino Transferase 25 U/L (17-59); Bilirubin,Total 0.2 mg/dl (0.2-1.3); Blood Urea Nitrogen 13 mg/dl (9-20); Calcium 9.4 mg/dl (8.4-10.2); Carbon Dioxide 29 mmol/L (22.0-30.0); Chloride 105 mmol/L (98-107); Estimated Glomerular Filt Rate 146 ml/min (>60); GFR (African American) 177 ML/MIN (>60); Globulin 3.6 g/dL (1.3-3.2); Glucose 111 mg/dl (74-100); Potassium 4.3 mmoL/L (3.5-5.1); Sodium 140 mmol/L (136-145); Total Protein,Serum 8.1 g/dl (6.3-8.2)
== END ==
PROVIDERS: Visit Provider Nurse Practitioner Family
DX: B17.10 Acute hepatitis C without hepatic coma (principal)
CPT/HCPCS: 36415; 80053; 87522; 87902

== ENCOUNTER 2021-08-28 15:55 | Emergency (ER) | payer OTHER, SELFPAY ==
--- NOTE | 2021-08-28 16:01 | XR_ITS ---
FINAL REPORT CLINICAL HISTORY: fell off of ladder FINDINGS: 3 views of the left foot were obtained. There is no acute fracture or dislocation. The joint spaces are intact. The soft tissues are unremarkable. IMPRESSION: No acute process. Reviewed, Interpreted and Dictated by Ralph Iniguez III, MD Transcribed by Ellis Arreola Authenticated and . [facility]
[2021-08-28 16:15] VITALS: BP 127/81; PULSE 76; RESP 19; TEMP 36.8; O2SAT 98; BMI 19.0
--- NOTE | 2021-08-28 16:31 | HMH.EDUTC ---
[facility] Clinical Impression: Foot sprain Qualifiers: Encounter type: initial encounter Laterality: left Qualified Code(s): S93.602A - Unspecified sprain of left foot, initial encounter Disposition: Home, Self-Care Condition on Discharge: Good Instructions: How to Use Crutches, Contusion, How To Perform RICE (Rest, Ice, Compress, Elevate), DI for Foot Sprain Additional Instructions: *weight bearing as tolerated *RICE, Rest the extremity, Ice 15-20 minutes 3-4 times daily, Compress- wear the kahlil wrap as discussed as much as possible to help reduce swelling and pain, Elevate the extremity when at rest *Kahlil wrap is for support and help control swelling, use it except in the shower. Be sure that is not to tight but not to loose either *Elevate when resting *Ibuprofen 600-800mg every 6-8 hours as needed for pain an inflammation. If need something more can take Tylenol in between doses of Ibuprofen to help Immediately follow up with your family doctor for new or worsening of symptoms, or no noticeable improvement over the next 3-5 days Referrals: Carly Joiner PA [Primary Care Provider] - As needed Time of Disposition: 16:39 Medical Decision Making - Jake Inquiry Pt receiving controlled substance: No Jake was queried for this patient: No Vital Signs: 08/28/21 16:15 08/28/21 16:45 Temperature 98.3 F 98.3 F Temperature Source Oral Pulse Rate 76 Pulse Rate [Left Brachial] 76 Respiratory Rate 19 19 Blood Pressure 127/81 Blood Pressure [Left Arm] 127/81 Blood Pressure Mean [Left Arm] 96 Blood Pressure Source [Left Arm] Automatic Cuff Blood Pressure Position [Left Arm] Sitting 02 Sat by Pulse Oximetry 98 Oxygen Delivery Method Room Air - Radiology Data #1 Image(s): Foot/Toes Image Reviewed: Yes I have reviewed radiologist's interpretation IMPRESSION: No acute process. [facility] [place] - General Stated complaint: AO07/08@0900 left foot injury Time Seen by Provider: 08/28/21 16:32 Mode of Arrival: Ambulatory Source of Information: Patient Limitations: No Limitations Description of Symptoms (Recalled from Triage Doc. by RN): PATIENT C/O INJURY TO LEFT FOOT AFTER FALLING OFF OF A LADDER THIS MORNING HEENT Symptoms (Recalled from RN notes): No Resp Symptoms (Recalled from RN notes): No Skin Symptoms (Recalled from RN notes): No MS Symptoms (Recalled from RN notes): Yes Functional Status (Recalled from RN notes): WNL - History of Present Illness Provider Complaint: Patient states that he was up on the ladder earlier this morning when it kicked out from under him and he fell and landed on his left foot States that ever since then he has been having pain and hurts when he tries to walk on it so he came in this evening when it wasnt any better Denies any other injury - Related Data Home Medications Medication Instructions Recorded Confirmed buprenorphine 8 mg-naloxone 2 mg 1.5 tab SUBLINGUAL DAILY tab 08/27/20 08/28/21 sublingual tablet Amlodipine Besylate 2.5 mg pe PO DAILY 08/28/21 08/28/21 Aspirin [Low Dose Aspirin EC] 81 mg PO DAILY 08/28/21 08/28/21 Allergies Allergy/AdvReac Type Severity Reaction Status Date / Time meloxicam [From Mobic] Allergy Severe Vomiting Verified 12/26/20 08:39 Penicillins Allergy Mild Unknown Verified 12/26/20 08:39 allergy reaction - Worker's Comp Is this a Worker's Comp case?: No [facility] History - Hepatitis A Screen Attestation statement:: This patient has been screened for Hepatitis A risk factors. I have reviewed the patient's past medical history: Yes Medical History: Reports:: Hepatitis Denies:: Cancer, Diabetes Mellitus Type 1, Diabetes Mellitus Type 2, Internal Pacemaker, MRSA, Seizures Other Medical History: Reports: Other Other Surgeries: Yes: No Previous Surgery. No: Pacemaker Amputation: No Fractures: No - Social History Smoking Status: Current every day smoker Tobacco Type: cigarettes # Packs/Day (ci
[2021-08-28 16:45] VITALS: BP 127/81; PULSE 76; RESP 19; TEMP 36.8; O2SAT 98
== END 2021-08-28 16:51 | disposition home or self-care (01) ==
PROVIDERS: Emergency Provider Nurse Practitioner; PCP Physician Assistant
DX: S93.602A Unspecified sprain of left foot, initial encounter (principal); K75.9 Inflammatory liver disease, unspecified; F17.210 Nicotine dependence, cigarettes, uncomplicated; Z79.52 Long term (current) use of systemic steroids; Z88.0 Allergy status to penicillin; Z88.8 Allergy status to other drugs, medicaments and biological substances; Z82.49 Family history of ischemic heart disease and other diseases of the circulatory system; Z83.3 Family history of diabetes mellitus; Z82.5 Family history of asthma and other chronic lower respiratory diseases; W11.XXXA Fall on and from ladder, initial encounter
CPT/HCPCS: 73630; 99213; G0463

== ENCOUNTER 2023-04-13 16:09 | Emergency (ER) | payer OTHER, SELFPAY ==
[2023-04-13 16:10] VITALS: BP 121/82; PULSE 83; RESP 18; TEMP 36.8; O2SAT 99; BMI 18.4
--- NOTE | 2023-04-13 16:21 | ED_ITS ---
I was consulted by the ULISSES and we discussed the complexity of the problems being addressed. I approved the treatment and management plan for this patient's care in the emergency department, thus performing a substantive portion of the medical decision making. Day Turcios MD Discharge Plan Disposition Patient Disposition: Home, Self-Care Condition: Good Chief Complaint: Nausea/Vomiting/Diarrhea Prescriptions Prescriptions: No Action buprenorphine-naloxone 8-2 mg tablet, sublingual 1.5 tab sublingual DAILY amlodipine 2.5 mg tablet 2.5 mg PO DAILY Qty: 90 3RF Rx Instructions: TAKE 1 TABLET 1 TIME EACH DAY. aspirin 81 mg tablet,delayed release (DR/EC) 81 mg PO DAILY Qty: 90 3RF Rx Instructions: TAKE 1 TABLET 1 TIME EACH DAY. Referrals Follow up/Referrals: Carly Joiner PA [Primary Care Provider] - See instructions Activity Restrictions/Add. Instructions Additional Instructions/Restrictions: Please take Zofran as needed. Please start with a very bland diet including bananas rice applesauce toast along with clear liquids. Advance as as you tolerate. Return if any worsening symptoms or no resolution or as needed. Instructions Patient Instructions: Nausea and Vomiting-Adult Discharge ED Provider: Day Khalil General Adult HPI General Chief complaint: Nausea/Vomiting/Diarrhea Stated complaint: vomitting, cold Time Seen by Provider: 04/13/23 16:12 Mode of Arrival: Wheelchair Source of Information: Patient and Significant Other Limitations: No Limitations Description of Symptoms (Recalled from ER Triage Doc. by RN): c/o vomiting and cold since 11am today. History of Present Illness HPI narrative: Patient is a 47-year-old male presents with intractable nausea vomiting and fever and chills since approximately 11 AM today. He is unable to tolerate p.o. intake. He has past medical history of hepatitis C hypertension and opiate dependence on chronic Suboxone therapy he denies abdominal pain chest pain shor tness of breath diarrhea hemoptysis hematochezia hematemesis melena. Related Data Home Medications Medication Instructions Recorded Confirmed buprenorphine 8 mg-naloxone 2 mg 1.5 tab sublingual DAILY drug abuse 08/27/20 07/07/22 sublingual tablet Previous Rx's Medication Instructions Recorded amlodipine 2.5 mg tablet 2.5 mg PO DAILY HEART #90 tabs 07/07/22 aspirin 81 mg tablet,delayed 81 mg PO DAILY HEART #90 tabs 07/07/22 release Allergies Allergy/AdvReac Type Severity Reaction Status Date / Time meloxicam [From Mobic] Allergy Severe Vomiting Verified 07/07/22 08:59 Penicillins Allergy Mild Unknown Verified 07/07/22 08:59 allergy reaction PFSH [facility] Disclaimer: The information contained in this section may have been updated after the patient was seen, as this information can be updated by other users. Medical History (Updated 07/07/22 @ 09:20 by Mercedes Galeana RN) HTN (hypertension) Social History Smoking Status: Current every day smoker tobacco type: cigarettes packs per day: 1 second hand exposure: No alcohol intake: never substance use type: marijuana current occupational status: other Travel in the last 8 weeks: None household members: spouse housing: house current occupational exposures/hazards: Yes caffeine: Yes ROS Obtained: Yes Systems reviewed as appropriate & no additional complaints except as documented Physical Exam General General appearance: alert and other (Patient is diaphoretic and appears unwell but is otherwise well-nourished well-developed.) Head Head exam: atraumatic and normal inspection Eye Eye exam: Present normal appearance, PERRL and EOMI ENT ENT exam: Present normal exam, normal oropharynx and mucous membranes moist Neck Neck exam: Present normal inspection, full ROM and trachea midline; Absent lymphadenopathy Chest Chest inspection: Present normal inspection and symmetric chest wall rise Respiratory Respiratory exam: Present normal lung sounds bilaterally Cardiovascular Cardiovascular exam: Present regular rate, normal rhythm and normal heart sounds Abdominal Exam Abdominal exam: Present soft and normal bowel sounds; Absent distention, tenderness, guarding or rebound Extremities Exam Extremities exam: Present normal inspection and full ROM Neurological Exam Neurological exam: Present alert and oriented X3 Psychiatric Psychiatric exam: Present normal affect and normal mood Skin Skin exam: Present warm, normal color and diaphoresis Medical Decision Making Medical Records Medical records reviewed: Yes I reviewed the patient's medical records. Jake Inquiry Pt receiving controlled substance: No Vital Signs: 04/13/23 16:10 04/13/23 16:31 04/13/23 16:40 Temperature 98.2 F Temperature Source Oral Pulse Rate 60 61 Pulse Rate [Left Radial] 83 Respiratory Rate 18 22 22 Blood Pressure 125/77 121/71 Blood Pressure [Right Arm] 121/82 Blood Pressure Mean 93 103 Blood Pressure Mean [Right Arm] 95 Blood Pressure Source [Right Arm] Automatic Cuff Blood Pressure Position [Right Arm] Sitting 02 Sat by Pulse Oximetry 99 99 100 Oxygen Delivery Method Room Air Lab Data Lab results reviewed: Yes I reviewed the patient's lab results. Lab Results 04/13/23 16:45: Lactate 2.1 04/13/23 17:11: WBC 13.0 H, RBC 6.01, Hgb 17.6, Hct 53.8 H, MCV 89.5, MCH 29.3, MCHC 32.8, RDW 13.7, Plt Count 272, MPV 7.8, Neut % (Auto) 90.2 H, Lymph % (Auto) 6.8 L, [place] % (Auto) 2.6, Eos % (Auto) 0.3, Baso % (Auto) 0.1, Neut # (Auto) 11.7 H, Lymph # (Auto) 0.9, [place] # (Auto) 0.3, Eos # (Auto) 0.0, Baso # (Auto) 0.0, Total Counted 100, Neutrophils % (Manual) 92 H, Lymphocytes % (Manual) 6 L, Monocytes % (Manual) 2, Platelet Estimate Normal, RBC Morphology Normal, Sodium 140, Potassium 3.5, Chloride 108 H, Carbon Dioxide 25, Anion Gap 10.5, BUN 18, Creatinine 0.70, Estimated Creat Clear 105, Estimated GFR 121, Est GFR ( Amer) 146, Glucose 122 H, Calcium 9.8, Total Bilirubin 1.0, AST 35, ALT 26, Alkaline Phosphatase 87, Total Protein 8.8 H, Albumin 5.1 H, Globulin 3.7 H, Albumin/Globulin Ratio 1.4 04/13/23 17:11 04/13/23 17:11 Orders (Tests/Meds): ED MEDICATIONS Discontinued Medications Generic Name Dose Route Start Last Admin Trade Name Freq PRN Reason Stop Dose Admin Acetaminophen 1,000 mg 04/13/23 16:27 04/13/23 16:37 Acetaminophen 1,000mg/100ml Vial IV 04/13/23 16:28 1,000 mg ONCE ONE Administration Sodium Chloride 1,000 mls @ 999 mls/hr 04/13/23 16:21 04/13/23 16:38 Sod Chlor 0.9% 1000ml Bag IV 04/13/23 17:21 999 mls/hr .Q1H1M ONE Administration Ondansetron HCl 8 mg 04/13/23 16:21 04/13/23 17:10 Ondansetron 4mg/2ml Vial IV 04/13/23 16:22 Not Given ONCE ONE Ondansetron HCl 8 mg 04/13/23 16:58 04/13/23 17:12 Ondansetron 4mg Odt SL 04/13/23 16:59 8 mg ONCE ONE Administration Promethazine HCl 12.5 mg 04/13/23 16:56 04/13/23 17:09 Promethazine Hcl 25mg/Ml 1ml Vial IV 04/13/23 16:57 Not Given ONCE ONE Sodium Chloride 25 ml 04/13/23 16:56 Sodium Chloride 0.9% 25ml Bag IV 04/13/23 16:57 ONCE ONE ORDERS Category Date Time Status CBC w/Auto Diff [Complete Blood Count Auto Diff] Stat Lab 04/13/23 17:11 Completed CMP [Comprehensive Metabolic Panel] Stat Lab 04/13/23 17:11 Completed Lactic Acid Stat Lab 04/13/23 16:45 Completed Medical Decision Narrative: In summary patient is a 47-year-old male who presents to the emergency department for evaluation of intractable vomiting, fever, chills. Patient is hemodynamically stable and afebrile on arrival. Physical exam shows the patient to be diaphoretic nontoxic-appearing but unwell with constant dry heaves at the time of my exam. Breath sounds clear and equal bilaterally to the bases he has a normal heart rate of 83, abdomen is soft nontender with no rebound guarding rigidity with normal bowel sounds patient has a normal neurologic exam GCS of 15. differential diagnosis includes gastritis, ACS, ulcer, neurologic causes, gastrointestinal infection, bowel obstruction. Initial workup will be conducted with hematologic labs twelve-lead EKG for now. Initial interventions include 8 mg of Zofran and 1 L bolus of normal saline. Initial workup reviewed by me and elevated white count with a left shift and a lactate of 2.1. The remainder of his laboratory investigations were nonactionable. Upon repeat evaluation patient had complete resolution of nausea and is now tolerating clear liquids p.o. Physical exam still shows no abdominal pain bowel sounds are normal active patient reports passing a small amount of flatus and is still hemodynamically stable and afebrile. Given this is appropriate for discharge home and will be discharged with prescription for Zofran. Patient return for any worsening symptoms or change in condition. Critical Care Critical Care Time Critical Care Time: No
[2023-04-13 16:31] VITALS: BP 125/77; PULSE 60; RESP 22; O2SAT 99
[2023-04-13] MEDS: ACETAMINOPHEN 1,000MG/100ML VIAL 1000 MG IV (16:37)
[2023-04-13] MEDS: 0.9 % SODIUM CHLORIDE 1000ML 1,000 ML 999 ML IV (16:38)
[2023-04-13 16:40] VITALS: BP 121/71; PULSE 61; RESP 22; O2SAT 100
--- NOTE | 2023-04-13 17:07 | PC.NURSE ---
attempted multiple times for an IV, unable at this time, attempting IV US by Cosme WALSH
[2023-04-13] MEDS: ONDANSETRON 4MG ODT 8 MG SL (17:12)
[2023-04-13 17:24] LABS: Lactic Acid 2.1 mmol/L (0.7-2.1)
[2023-04-13 17:25] LABS: Chloride 108 mmol/L (98-107); Potassium 3.5 mmoL/L (3.5-5.1); Sodium 140 mmol/L (136-145)
[2023-04-13 17:28] LABS: Alanine Aminotransferase 26 U/L (12-78); Albumin Level 5.1 g/dl (3.5-5.0); Albumin/Globulin Ratio 1.4 (1.1-1.8); Alkaline Phosphatase 87 U/L (38-126); Anion Gap 10.5 mEq/L (5-15); Aspartate Amino Transferase 35 U/L (17-59); Blood Urea Nitrogen 18 mg/dl (9-20); Calcium 9.8 mg/dl (8.4-10.2); Carbon Dioxide 25 mmol/L (22.0-30.0); Creatinine Clearance Estimated 105 mL/min (50-200); Estimated Glomerular Filt Rate 121 ml/min (>60); GFR (African American) 146 ML/MIN (>60); Globulin 3.7 g/dL (1.3-3.2); Glucose 122 mg/dl (74-100); Total Protein,Serum 8.8 g/dl (6.3-8.2)
[2023-04-13 17:33] LABS: Basophils % 0.1 % (0.1-2.0); Eosinophils % 0.3 % (0.1-12.0); Hematocrit 53.8 % (42.0-52.0); Hemoglobin 17.6 g/dL (14.1-18.0); Lymphocytes # 0.9 K/mm3 (0.7-4.5); Lymphocytes % 6.8 % (10-50); Mean Corpuscular HGB Conc 32.8 g/dL (31.8-35.4); Mean Corpuscular Hemoglobin 29.3 pg (27.0-31.2); Mean Corpuscular Volume 89.5 fl (80-94); Mean Platelet Volume 7.8 fl (7.4-10.4); Monocytes # 0.3 K/mm3 (0.1-1.0); Monocytes % 2.6 % (1.7-9.3); Neutrophils # 11.7 K/mm3 (1.8-7.8); Neutrophils % 90.2 % (37.0-80.0); Platelet Count 272 K/mm3 (142-424); Red Blood Count 6.01 M/mm3 (4.60-6.20); Red Cell Distribution Width 13.7 % (11.5-17.5)
[2023-04-13 17:34] LABS: MANUAL DIFFERENTIAL MANUAL DIFFERENTIAL (MANUAL DIFF)
--- NOTE | 2023-04-13 17:48 | ECG_ITS ---
APPROVED REPORT Exam: Resting ECG HR:69 bpm ECG Measurements Heart Rate 69 AXES ND 150 P 87 QRSd 84 QRS 87 QT 388 T 80 QTc 407 Conclusion SINUS RHYTHM POSSIBLE RIGHT ATRIAL ENLARGEMENT [0.25mV P-WAVE] BORDERLINE ECG UNCONFIRMED REPORT Electronically signed by : Jorge Gonzalez MD 04/13/2023 20:34:12
[2023-04-13 18:01] LABS: Lymphocytes % 6 % (10-50); Monocytes % 2 % (2-9); Neutrophils % 92 % (42-76); Total Cells Counted 100
[2023-04-13 18:02] LABS: Platelet Estimate Normal; RBC Morphology Normal
--- NOTE | 2023-04-13 18:07 | PC.NURSE ---
Rounded on pt to see if they had any needs. Advised them that we had aan emergency at the moment and it may be a few before we got back to them. Made sure they didnt need anything which they said they didnt
[2023-04-13 19:15] VITALS: BP 121/71; PULSE 61; RESP 19; TEMP 36.7
== END 2023-04-13 19:16 | disposition home or self-care (01) ==
PROVIDERS: Physician Assistant; Emergency Provider Emergency Medicine; PCP Physician Assistant
DX: R11.2 Nausea with vomiting, unspecified (principal); R50.9 Fever, unspecified; I10 Essential (primary) hypertension; B19.20 Unspecified viral hepatitis C without hepatic coma; F17.210 Nicotine dependence, cigarettes, uncomplicated
CPT/HCPCS: 80053; 83605; 85007; 85025; 93005; 96361; 96374; 99285; J0131; J2405

== ENCOUNTER 2023-07-25 10:55 | Outpatient (CLI) | payer OTHER, SELFPAY ==
[2023-07-25 11:10] LABS: Basophils # 0.1 K/mm3 (0-0.2); Basophils % 1.7 % (0.1-2.0); Eosinophils # 0.2 K/mm3 (0.0-0.4); Hematocrit 48.9 % (42.0-52.0); Hemoglobin 15.6 g/dL (14.1-18.0); Lymphocytes # 2.4 K/mm3 (0.7-4.5); Lymphocytes % 41.4 % (10-50); Mean Corpuscular HGB Conc 31.9 g/dL (31.8-35.4); Mean Corpuscular Hemoglobin 28.9 pg (27.0-31.2); Mean Corpuscular Volume 90.5 fl (80-94); Mean Platelet Volume 8.3 fl (7.4-10.4); Monocytes # 0.3 K/mm3 (0.1-1.0); Monocytes % 4.4 % (1.7-9.3); Neutrophils # 2.9 K/mm3 (1.8-7.8); Neutrophils % 49.6 % (37.0-80.0); Platelet Count 249 K/mm3 (142-424); Red Cell Distribution Width 14.4 % (11.5-17.5); White Blood Count 5.9 K/mm3 (4.8-10.8)
[2023-07-25 11:31] LABS: Chloride 104 mmol/L (98-107); Potassium 4.3 mmoL/L (3.5-5.1); Sodium 137 mmol/L (136-145)
[2023-07-25 11:33] LABS: Blood Urea Nitrogen 13 mg/dl (9-20); Estimated Glomerular Filt Rate 121 ml/min (>60); GFR (African American) 146 ML/MIN (>60)
[2023-07-25 11:34] LABS: Alanine Aminotransferase 16 U/L (12-78); Albumin Level 4.5 g/dl (3.5-5.0); Alkaline Phosphatase 62 U/L (38-126); Anion Gap 12.3 mEq/L (5-15); Aspartate Amino Transferase 26 U/L (17-59); Bilirubin,Direct 0.2 mg/dl (0.0-0.4); Bilirubin,Indirect 0.1 mg/dL (0.0-0.9); Bilirubin,Total 0.3 mg/dl (0.2-1.3); Calcium 9.7 mg/dl (8.4-10.2); Carbon Dioxide 25 mmol/L (22.0-30.0); Cholesterol 189 mg/dl (140-200); Glucose 109 mg/dl (74-100); Total Protein,Serum 7.5 g/dl (6.3-8.2); Triglycerides 84 mg/dl (30-150); VLDL Cholesterol 17 mg/dL (0-40)
[2023-07-25 11:35] LABS: Chol/HDL Ratio 3.6 (1-3.5); HDL Cholesterol 52 mg/dl (40-60); Magnesium 1.8 mg/dl (1.6-2.3)
[2023-07-25 11:49] LABS: Free T4 (Free Thyroxine) 1.02 ng/dl (0.78-2.19)
[2023-07-25 12:04] LABS: Thyroid Stimulating Hormone 1.18 uIU/mL (0.465-4.68)
== END 2023-07-25 23:59 | disposition home or self-care (01) ==
LOC: LAB 10:56
PROVIDERS: PCP Physician Assistant; Visit Provider Physician Assistant
DX: I11.9 Hypertensive heart disease without heart failure (principal); I25.10 Atherosclerotic heart disease of native coronary artery without angina pectoris; E78.5 Hyperlipidemia, unspecified; F17.210 Nicotine dependence, cigarettes, uncomplicated
CPT/HCPCS: 36415; 80048; 80061; 80076; 83735; 84439; 84443; 85025

== ENCOUNTER 2024-10-15 08:12 | Outpatient (CLI) | payer OTHER, SELFPAY ==
[2024-10-15 09:12] LABS: Hematocrit 48.0 % (42.0-52.0); Hemoglobin 16.1 g/dL (14.1-18.0); Immature Granulocytes % 0.2 %; Mean Corpuscular HGB Conc 33.5 g/dL (31.8-35.4); Mean Corpuscular Hemoglobin 28.6 pg (27.0-31.2); Mean Corpuscular Volume 85.3 fl (80-94); Nucleated Red Blood Cells % 0 %; Platelet Count 250 K/mm3 (142-424); Red Blood Count 5.63 M/mm3 (4.60-6.20); Red Cell Distribution Width-SD 43.6 fL; White Blood Count 6.7 K/mm3 (4.8-10.8)
[2024-10-15 09:46] LABS: Albumin Level 5.0 g/dl (3.5-5.0)
[2024-10-15 09:48] LABS: Alanine Aminotransferase 16 U/L (12-78); Alkaline Phosphatase 84 U/L (38-126); Aspartate Amino Transferase 31 U/L (17-59); Bilirubin,Direct 0.2 mg/dl (0.0-0.4); Bilirubin,Indirect 0.3 mg/dL (0.0-0.9); Bilirubin,Total 0.5 mg/dl (0.2-1.3); Bilirubin,Unconjugated 0.3 mg/dL (0.0-1.1); Total Protein,Serum 7.9 g/dl (6.3-8.2)
[2024-10-15 09:49] LABS: Cholesterol 200 mg/dl (140-200); HDL Cholesterol 47 mg/dl (40-60); Triglycerides 141 mg/dl (30-150)
[2024-10-15 13:02] LABS: Alanine Aminotransferase 17 U/L (12-78); Albumin Level 4.8 g/dl (3.5-5.0); Albumin/Globulin Ratio 1.7 (1.1-1.8); Alkaline Phosphatase 78 U/L (38-126); Anion Gap 15.2 mEq/L (5-15); Aspartate Amino Transferase 29 U/L (17-59); Bilirubin,Total 0.5 mg/dl (0.2-1.3); Blood Urea Nitrogen 15 mg/dl (9-20); Calcium 9.4 mg/dl (8.4-10.2); Carbon Dioxide 20 mmol/L (22.0-30.0); Chloride 105 mmol/L (98-107); Creatinine,Serum 0.70 mg/dl (0.66-1.25); Estimated Glomerular Filt Rate 120 ml/min (>60); GFR (African American) 146 ML/MIN (>60); Globulin 2.8 g/dL (1.3-3.2); Glucose 99 mg/dl (74-100); Potassium 4.2 mmoL/L (3.5-5.1); Sodium 136 mmol/L (136-145); Total Protein,Serum 7.6 g/dl (6.3-8.2)
== END 2024-10-15 23:59 | disposition home or self-care (01) ==
PROVIDERS: Physician Assistant; PCP Physician Assistant; Visit Provider Obstetrics & Gynecology
DX: E78.5 Hyperlipidemia, unspecified (principal); F11.20 Opioid dependence, uncomplicated
CPT/HCPCS: 36415; 80053; 80061; 80074; 80076; 85025; 87389

== ENCOUNTER 2024-12-25 07:10 | Day surgery (SDC) | payer OTHER, SELFPAY ==
[2024-12-25] VITALS (17 sets, daily range): BP systolic 102–141; BP diastolic 62–105; PULSE 55–96; RESP 14–20; TEMP 36.1–38; O2SAT 95–100; BMI 19.2
--- NOTE | 2024-12-25 07:25 | PC.NURSE ---
FSBS 127
[2024-12-25] MEDS: ONDANSETRON 4MG ODT 4 MG SL (07:30)
--- NOTE | 2024-12-25 07:31 | HMH.EDGENADL ---
Discharge Plan Disposition Chief Complaint: Abdominal Pain Prescriptions Prescriptions: No Action buprenorphine-naloxone 8-2 mg tablet, sublingual 1.5 tab sublingual DAILY amlodipine 2.5 mg tablet See Rx Instructions .ROUTE .COMPLEX Qty: 90 3RF Dose Instruction: TAKE 1 TABLET 1 TIME EACH DAY FOR HEART Rx Instructions: TAKE 1 TABLET 1 TIME EACH DAY FOR HEART atorvastatin [Lipitor] 20 mg tablet 20 mg PO DAILY Qty: 90 3RF aspirin 81 mg tablet,delayed release (DR/EC) 81 mg PO DAILY Qty: 100 3RF Rx Instructions: Take one tab daily Referrals Follow up/Referrals: Carly Joiner PA [Primary Care Provider, Medical] - See instructions Instructions Patient Instructions: DI for Acute Abdominal Pain Print Language Print Language: Greek Discharge ED Provider: Fam David General Adult HPI General Chief complaint: Abdominal Pain Stated complaint: Stomach Pain, Vomiting, Weakness, & Chills Time Seen by Provider: 12/25/24 07:16 History of Present Illness HPI narrative: This patient is a 49-year-old male with past medical history of IV drug use currently on Suboxone and unspecified heart arrhythmia. The patient presents to the emergency department with acute onset abdominal pain began at 230 this morning. It was accompanied by nausea and vomiting. The patient has been retching persistently since 230, he has not produced any vomit. He is not having diarrhea. He endorses periumbilical and suprapubic abdominal pain. The patient reports no inciting factors, denies infectious symptoms at this time. Related Data Home Medications ?Medication ?Instructions ?Recorded ?Confirmed buprenorphine 8 mg-naloxone 2 mg 1.5 tab sublingual DAILY drug abuse 08/27/20 12/25/24 sublingual tablet Previous Rx's ?Medication ?Instructions ?Recorded amlodipine 2.5 mg tablet See Rx Instructions .Route 09/17/24 .COMPLEX #90 tabs aspirin 81 mg tablet,delayed 81 mg PO DAILY #100 tabs 09/17/24 release atorvastatin 20 mg tablet (Lipitor) 20 mg PO DAILY #90 tabs 09/17/24 Allergies Allergy/AdvReac Type Severity Reaction Status Date / Time meloxicam (From [facility]) Allergy Severe Vomiting Verified 12/25/24 08:02 Penicillins Allergy Mild Unknown Verified 12/25/24 08:02 [facility] Dis[facility]: The information contained in this section may have been updated after the patient was seen, as this information can be updated by other users. Medical History HLD (hyperlipidemia) Coronary artery disease HTN (hypertension) Social History Smoking Status: Current every day smoker tobacco type: cigarettes packs per day: 1 second hand exposure: No alcohol intake: never substance use type: marijuana current occupational status: other Travel in the last 8 weeks?: None household members: spouse housing: house current occupational exposures/hazards: Yes caffeine: Yes Have you lived/traveled outside [place] in past 30 days?: No Contact w/someone who lives/traveled outside [place] past 30 days?: No Exposure to someone with infectious disease in past 14 days?: No Do you have a fever (greater than 100.4 F or 38 C)?: No Have you tested positive for COVID-19?: No Exposed to someone with COVID-19 in past 14 days?: No Do you have a sore throat?: No Do you have a cough?: No Do you have any weakness?: No Do you have any diarrhea?: No Are you experiencing any unusual bleeding?: No Do you have any muscle aches/pain?: No Do you have any abdominal pain?: No Are you experiencing loss of taste or smell?: No Other Medical History Have you received the Flu Vaccine for this season: No Have you received the Pneumonia Vaccine: No ROS Obtained: Yes All systems reviewed & no additional complaints except as documented Physical Exam General General appearance: alert and in no apparent distress Head Head exam: atraumatic and normocephalic Eye Eye exam: Present normal appearance, PERRL and EOMI ENT ENT exam: Present normal exam and normal external ear exam Neck Neck exam: Present normal inspection, full ROM and trachea midline Chest Chest inspection: Present normal inspection and symmetric chest wall rise; Absent tenderness Respiratory Respiratory exam: Absent respiratory distress Cardiovascular Cardiovascular exam: Present regular rate, normal rhythm and other (appears warm and well perfused) Abdominal Exam Abdominal exam: Present tenderness (Periumbilical tenderness); Absent distention exam: Absent deferred Extremities Exam Extremities exam: Present normal inspection and full ROM Neurological Exam Neurological exam: Present alert and oriented X3 Psychiatric Psychiatric exam: Present normal affect Skin Skin exam: Present warm and dry Medical Decision Making Medical Records Medical records reviewed: Yes I reviewed the patient's medical records. Screening: Per USPSTF and CDC recommendations, given the prevalence of disease in our region, it is our hospital?s policy to screen for HIV and viral Hepatitis for all patients aged 18 and over and those with ongoing risk factors. Jake Inquiry Pt receiving controlled substance: No Jake was queried for this patient: No Vital Signs: 12/25/24 07:12 12/25/24 08:01 12/25/24 08:30 Temperature 96.9 F L Temperature Source Temporal Artery Scan Pulse Rate 69 65 Pulse Rate [Left Radial] 75 Respiratory Rate 20 Blood Pressure 129/75 135/68 Blood Pressure [Right Arm] 127/105 H Blood Pressure Mean [Right Arm] 112 02 Sat by Pulse Oximetry 100 98 97 Oxygen Delivery Method Room Air Room Air Room Air 12/25/24 10:25 12/25/24 10:31 12/25/24 11:48 Temperature 98.1 F Temperature Source Oral Pulse Rate 66 66 Pulse Rate [Left Radial] 80 Respiratory Rate 20 Blood Pressure 128/71 140/77 Blood Pressure [Right Arm] 137/89 Blood Pressure Mean [Right Arm] 105 02 Sat by Pulse Oximetry 98 99 98 Oxygen Delivery Method Room Air Room Air Room Air Lab Data Lab results reviewed: Yes I reviewed the patient's lab results. Lab Results 12/25/24 07:30: WBC 16.2 H, RBC 5.38, Hgb 15.6, Hct 44.9, MCV 83.5, MCH 29.0, MCHC 34.7, RDW 13.2, Plt Count 259, MPV 9.2, Neut % (Auto) 86.2 H, Lymph % (Auto) 9.1 L, [place] % (Auto) 3.8, Eos % (Auto) 0.1, Baso % (Auto) 0.2, Neut # (Auto) 14.0 H, Lymph # (Auto) 1.5, [place] # (Auto) 0.6, Eos # (Auto) 0.0, Baso # (Auto) 0.0, Sodium 137, Potassium 3.7, Chloride 102, Carbon Dioxide 23, Anion Gap 15.7 H, BUN 17, Creatinine 0.70, Estimated Creat Clear 106, Estimated GFR 120, Est GFR ( Amer) 145, Glucose 134 H, Lactate 1.8, Calcium 9.4, Total Bilirubin 1.0, AST 46, ALT 41, Alkaline Phosphatase 107, C-Reactive Protein 7.7 H, Total Protein 9.1 H, Albumin 5.9 H, Globulin 3.2, Albumin/Globulin Ratio 1.8, Lipase 41 12/25/24 07:44: SARS-CoV-2 (PCR) Not detected, Influenza A Untype (PCR) Not detected, Influenza Type B (PCR) Not detected 12/25/24 10:15: Urine Color Yellow, Urine Appearance Clear, Urine pH 6.0, Ur Specific [place] 1.020, Urine Protein Negative, Urine Glucose (UA) Negative, Urine Ketones 2+, Urine Blood Trace-i, Urine Nitrate Negative, Urine Bilirubin Negative, Urine Urobilinogen 0.2, Ur Leukocyte Esterase Negative, Urine RBC Occasional, Urine WBC Occasional, Ur Squamous Epith Cells Occasional, Urine Bacteria Trace 12/25/24 07:30 12/25/24 07:30 Orders (Tests/Meds): ED MEDICATIONS Generic Name Dose Route Start Last Admin Trade Name Freryan PRN Reason Stop Dose Admin Sodium Chloride 10 ml 12/25/24 10:09 12/25/24 10:10 Sodium Chloride 0.9% 10ml Syr (Rad Only) IV 01/24/25 10:08 10 ml NEEDED PRN Administration Maintain IV Site Discontinued Medications Generic Name Dose Route Start Last Admin Trade Name Freq PRN Reason Stop Dose Admin Diphenhydramine HCl 25 mg 12/25/24 07:46 12/25/24 08:00 Diphenhydramine 50mg/Ml Vial IV 12/25/24 07:47 25 mg ONCE ONE Administration Droperidol 2.5 mg 12/25/24 07:46 12/25/24 07:54 Droperidol 5mg/2ml Vial IV 12/25/24 07:47 2.5 mg ONCE ONE Administration Lactated Ringer's 1,000 mls @ 999 mls/hr 12/25/24 07:20 12/25/24 09:40 Lactated Ringer's 1000 Ml Bag IV 12/25/24 08:20 Infused .Q1H1M ONE Infusion Iopamidol 75 ml 12/25/24 10:09 12/25/24 10:10 Iopamidol-370 (76%);100ml Bottle IV 12/25/24 10:10 75 ml ONCE ONE Administration Morphine Sulfate 4 mg 12/25/24 07:20 12/25/24 07:56 Morphine 4mg/Ml Syringe IV 12/25/24 07:21 Not Given ONCE ONE Ondansetron HCl 4 mg 12/25/24 07:22 12/25/24 07:30 Ondansetron 4mg Odt SL 12/25/24 07:23 4 mg ONCE ONE Administration ORDERS Category Date Time Status CT abdomen pelvis w con Stat Cat Scan 12/25/24 08:21 Completed CBC w/Auto Diff [Complete Blood Count Auto Diff] Stat Lab 12/25/24 07:30 Completed CMP [Comprehensive Metabolic Panel] Stat Lab 12/25/24 07:30 Completed CRP [C-Reactive Protein] Stat Lab 12/25/24 07:30 Completed Lactic Acid Stat Lab 12/25/24 07:30 Completed Lipase Stat Lab 12/25/24 07:30 Completed Rapid PCR Covid and Flu A/B Stat Lab 12/25/24 07:44 Completed UA [Urinalysis and Microscopic] Stat Lab 12/25/24 10:15 Completed Medical Decision Narrative: MDM In summary, this 49-year-old male presents to the emergency department today with acute onset abdominal pain, nausea, vomiting. Initial evaluation the patient uncomfortable, retching. Differential diagnosis includes but is not limited to appendicitis, acute mesenteric ischemia, flu, COVID, RSV, viral gastroenteritis, constipation, small bowel obstruction, large bowel obstruction. Based on these concerns, I ordered comprehensive laboratory and imaging workup. Patient received Zofran, droperidol, for treatment. Labs personally reviewed and interpreted demonstrate leukocytosis with left shift. CT imaging personally interpreted by me demonstrate dilated and inflamed appendix with possible colitis. I had interactive discussion with the general surgery team. Ultimately we felt is appropriate to take the patient to the operating room for a laparoscopic appendectomy with possible admission versus discharge from PACU pending symptomatic. Critical Care Critical Care Time Critical Care Time: No
--- NOTE | 2024-12-25 07:43 | ECG_ITS ---
APPROVED REPORT Exam: Resting ECG HR:53 bpm ECG Measurements Heart Rate 53 AXES MO 157 P 78 QRSd 88 QRS 96 QT 418 T 75 QTc 402 Conclusion SINUS BRADYCARDIA BORDERLINE RIGHT AXIS DEVIATION [QRS AXIS > 90] MODERATE VOLTAGE CRITERIA FOR LVH, CONSIDER NORMAL VARIANT [MEETS CRITERIA IN ONE OF: R(aVL), S(V1), R(V5), R(V5/V6)+S(V1)] BORDERLINE ECG Electronically signed by : SIMEON INGRAM, 12/31/2024 07:16:48
[2024-12-25 07:44] LABS: Hematocrit 44.9 % (42.0-52.0); Hemoglobin 15.6 g/dL (14.1-18.0); Immature Granulocytes % 0.6 %; Mean Corpuscular HGB Conc 34.7 g/dL (31.8-35.4); Mean Corpuscular Hemoglobin 29.0 pg (27.0-31.2); Mean Corpuscular Volume 83.5 fl (80-94); Nucleated Red Blood Cells % 0 %; Platelet Count 259 K/mm3 (142-424); Red Blood Count 5.38 M/mm3 (4.60-6.20); Red Cell Distribution Width-SD 40.2 fL; White Blood Count 16.2 K/mm3 (4.8-10.8)
[2024-12-25 07:51] LABS: Coronavirus 19, PCR Not Detected (NotDetected); Influenza A, PCR Not Detected (NotDetected); Influenza B, PCR Not Detected (NotDetected)
[2024-12-25 07:53] LABS: Albumin Level 5.9 g/dl (3.5-5.0); Chloride 102 mmol/L (98-107); Sodium 137 mmol/L (136-145)
[2024-12-25 07:54] LABS: Potassium 3.7 mmoL/L (3.5-5.1)
[2024-12-25] MEDS: droPERidol 5MG/2ML VIAL 2.5 MG IV (07:54)
[2024-12-25] MEDS: LACTATED RINGERS 1000ML 1,000 ML 999 ML IV (07:55)
[2024-12-25 07:56] LABS: Alanine Aminotransferase 41 U/L (12-78); Albumin/Globulin Ratio 1.8 (1.1-1.8); Alkaline Phosphatase 107 U/L (38-126); Anion Gap 15.7 mEq/L (5-15); Aspartate Amino Transferase 46 U/L (17-59); Bilirubin,Total 1.0 mg/dl (0.2-1.3); Blood Urea Nitrogen 17 mg/dl (9-20); Carbon Dioxide 23 mmol/L (22.0-30.0); Creatinine Clearance Estimated 106 mL/min (50-200); Creatinine,Serum 0.70 mg/dl (0.66-1.25); Estimated Glomerular Filt Rate 120 ml/min (>60); GFR (African American) 145 ML/MIN (>60); Globulin 3.2 g/dL (1.3-3.2); Lipase 41 U/L (23-300); Total Protein,Serum 9.1 g/dl (6.3-8.2)
[2024-12-25 07:57] LABS: Calcium 9.4 mg/dl (8.4-10.2); Glucose 134 mg/dl (74-100)
--- NOTE | 2024-12-25 08:21 | CT_ITS ---
FINAL REPORT TECHNIQUE: Thin section axial images are obtained through the abdomen and pelvis after intravenous contrast. Reconstruction images were obtained from the axial data. Exam was performed using dose reduction techniques. CLINICAL HISTORY: abd pain, vomiting COMPARISON: 10/18/2020 FINDINGS: LUNG BASES: Lung bases are clear. Heart size is normal. LIVER: Homogeneous. No focal lesion. GALLBLADDER/BILIARY SYSTEM: Gallbladder is present. No gallstones. No biliary dilatation. SPLEEN: Unremarkable. PANCREAS: Unremarkable. ADRENALS: Unremarkable. KIDNEYS/URETERS/BLADDER: Right kidney is unremarkable. There is a 3.5 cm lesion arising from the upper pole of the left kidney which is not a simple cyst with Hounsfield unit measuring 85. This could be hemorrhagic or proteinaceous cyst and is unchanged from 2020. Simple cyst mid left kidney noted. No hydronephrosis. Unremarkable urinary bladder. GI TRACT: No small bowel obstruction or dilatation. More distal portion of the appendix are dilated and fluid-filled. The tip of the appendix sits midline anterior to the sacral promontory. There is abnormal surrounding attenuation concerning for acute appendicitis. Additional short segment wall thickening of the ascending colon is noted just distal to the ileocecal valve. While this could represent focal colitis, neoplasm not excluded. Remaining GI tract without acute abnormality. PELVIC ORGANS: Prostate normal size for age. LYMPH NODES/RETROPERITONEUM/MESENTERY: No lymphadenopathy. No abdominal aortic aneurysm. ABDOMINAL WALL: The abdominal wall is intact. FREE FLUID: No ascites. BONES: No acute osseous abnormality. IMPRESSION: Findings concerning for acute appendicitis. Focal wall thickening proximal ascending colon could represent colitis but neoplasm not excluded. Recommend correlation with any recent colonoscopy. If one has not been obtained, consider performing colonoscopy. Reviewed, Interpreted and Dictated by Chacha Wang MD Transcribed by Cece Lyn Authenticated and . [facility]
[2024-12-25 09:00] LABS: C-Reactive Protein 7.7 mg/L (0-4)
[2024-12-25] MEDS: SODIUM CHLORIDE 0.9% 10ML SYR (RAD ONLY) 10 ML IV (10:10)
[2024-12-25] MEDS: IOPAMIDOL-370 (76%);100ML BOTTLE 75 ML IV (10:10)
[2024-12-25 10:21] LABS: Microscopic, Urine URINE MICROSCOPIC (MICROSCOPIC)
[2024-12-25 10:40] LABS: Bilirubin,Urine Negative (Negative); Color,Urine YELLOW (Yellow); Glucose,Urine (UA) Negative (Negative); Ketones,Urine 2+ (Negative); Leukocyte Esterase,Urine Negative (Negative); PH,Urine 6.0 (5.0-8.5); Protein,Urine Negative (Negative); Specific Gravity, Urine 1.020 (1.005-1.030); Urobilinogen,Urine 0.2 EU/dl (0.2)
[2024-12-25 10:59] LABS: Bacteria,Urine Trace /lpf; RBC,Urine Occasional #/hpf (0-3); Squamous Epithelial Cell,Urine Occasional #/hpf (0-5); WBC,Urine Occasional #/hpf (0-3)
--- NOTE | 2024-12-25 11:28 | PC.NURSE ---
paged educational resource coordinator surgery for er md due to ct scan showing acute appy
--- NOTE | 2024-12-25 11:30 | EXP.SURG.CON ---
History of Present Illness *Admission Date: 12/25/24 *Reason for visit:: Appendicitis *History of present illness: Patient is a 49-year-old male from [place] with history of hyperlipidemia, coronary artery disease, hypertension, hepatitis C with prior history of IV drug use. He presented to the emergency department today with acute onset of periumbilical abdominal pain beginning approximately 2:30 AM with associated nausea and vomiting. He was found to have a leukocytosis. He underwent CT scan which revealed findings concerning for acute appendicitis with focal wall thickening of the proximal ascending colon which could represent colitis but neoplasm not excluded. There was a distal portion of the appendix was dilated and fluid-filled with some abnormal surrounding attenuation. Of note, patient's never had prior colonoscopy. He was given Cologuard but never went through with sending it in. His father had colon cancer diagnosed at approximately age 62. . [facility] Disclaimer: The information contained in this section may have been updated after the patient was seen, as this information can be updated by other users. Medical History HLD (hyperlipidemia) Coronary artery disease HTN (hypertension) Social History Smoking Status: Current every day smoker tobacco type: cigarettes packs per day: 1 second hand exposure: No alcohol intake: never substance use type: marijuana current occupational status: other Travel in the last 8 weeks?: None household members: spouse housing: house current occupational exposures/hazards: Yes caffeine: Yes Have you lived/traveled outside [place] in past 30 days?: No Contact w/someone who lives/traveled outside US past 30 days?: No Exposure to someone with infectious disease in past 14 days?: No Do you have a fever (greater than 100.4 F or 38 C)?: No Have you tested positive for COVID-19?: No Exposed to someone with COVID-19 in past 14 days?: No Do you have a sore throat?: No Do you have a cough?: No Do you have any weakness?: No Do you have any diarrhea?: No Are you experiencing any unusual bleeding?: No Do you have any muscle aches/pain?: No Do you have any abdominal pain?: No Are you experiencing loss of taste or smell?: No Meds Home Medications and Allergies Home Medications ?Medication ?Instructions ?Recorded ?Confirmed ?Type buprenorphine 8 mg-naloxone 2 mg 1.5 tab sublingual DAILY drug abuse 08/27/20 12/25/24 History sublingual tablet amlodipine 2.5 mg tablet See Rx Instructions .Route 09/17/24 12/25/24 Rx .COMPLEX #90 tabs aspirin 81 mg tablet,delayed 81 mg PO DAILY #100 tabs 09/17/24 12/25/24 Rx release atorvastatin 20 mg tablet (Lipitor) 20 mg PO DAILY #90 tabs 09/17/24 12/25/24 Rx New Prescriptions to Start Prescriptions: Allergies Allergy/AdvReac Type Severity Reaction Status Date / Time meloxicam (From Neosens) Allergy Severe Vomiting Verified 12/25/24 08:02 Penicillins Allergy Mild Unknown Verified 12/25/24 08:02 allergy reaction Exam (Inpt) Vital signs and Labs for Last 24 Hours: Temp Pulse Resp BP Pulse Ox O2 Del Method 96.9 F L 66 20 140/77 99 Room Air 12/25/24 07:12 12/25/24 10:31 12/25/24 07:12 12/25/24 10:31 12/25/24 10:31 12/25/24 10:31 Laboratory Results - last 24 hr 12/25/24 07:30: WBC 16.2 H, RBC 5.38, Hgb 15.6, Hct 44.9, MCV 83.5, MCH 29.0, MCHC 34.7, RDW 13.2, Plt Count 259, MPV 9.2, Neut % (Auto) 86.2 H, Lymph % (Auto) 9.1 L, [place] % (Auto) 3.8, Eos % (Auto) 0.1, Baso % (Auto) 0.2, Neut # (Auto) 14.0 H, Lymph # (Auto) 1.5, [place] # (Auto) 0.6, Eos # (Auto) 0.0, Baso # (Auto) 0.0, Sodium 137, Potassium 3.7, Chloride 102, Carbon Dioxide 23, Anion Gap 15.7 H, BUN 17, Creatinine 0.70, Estimated Creat Clear 106, Estimated GFR 120, Est GFR ( Amer) 145, Glucose 134 H, Lactate 1.8, Calcium 9.4, Total Bilirubin 1.0, AST 46, ALT 41, Alkaline Phosphatase 107, C-Reactive Protein 7.7 H, Total Protein 9.1 H, Albumin 5.9 H, Globulin 3.2, Albumin/Globulin Ratio 1.8, Lipase 41 12/25/24 07:44: SARS-CoV-2 (PCR) Not detected, Influenza A Untype (PCR) Not detected, Influenza Type B (PCR) Not detected 12/25/24 10:15: Urine Color Yellow, Urine Appearance Clear, Urine pH 6.0, Ur Specific [place] 1.020, Urine Protein Negative, Urine Glucose (UA) Negative, Urine Ketones 2+, Urine Blood Trace-i, Urine Nitrate Negative, Urine Bilirubin Negative, Urine Urobilinogen 0.2, Ur Leukocyte Esterase Negative, Urine RBC Occasional, Urine WBC Occasional, Ur Squamous Epith Cells Occasional, Urine Bacteria Trace I & O for Labs for Last 24 Hours: Intake & Output 12/22/24 12/23/24 12/24/24 12/25/24 11:59 10:59 11:59 11:59 Intake Total 1000 / 1000 Balance 1000 / 1000 Weight 130 lb Constitutional: no acute distress GI: Present soft Comments:: He has some tenderness in the right upper quadrant. No guarding or rebound. Results Labs 12/25/24 07:30 12/25/24 07:30 Labs: Laboratory Results - last 24 hr 12/25/24 07:30: WBC 16.2 H, RBC 5.38, Hgb 15.6, Hct 44.9, MCV 83.5, MCH 29.0, MCHC 34.7, RDW 13.2, Plt Count 259, MPV 9.2, Neut % (Auto) 86.2 H, Lymph % (Auto) 9.1 L, [place] % (Auto) 3.8, Eos % (Auto) 0.1, Baso % (Auto) 0.2, Neut # (Auto) 14.0 H, Lymph # (Auto) 1.5, [place] # (Auto) 0.6, Eos # (Auto) 0.0, Baso # (Auto) 0.0, Sodium 137, Potassium 3.7, Chloride 102, Carbon Dioxide 23, Anion Gap 15.7 H, BUN 17, Creatinine 0.70, Estimated Creat Clear 106, Estimated GFR 120, Est GFR ( Amer) 145, Glucose 134 H, Lactate 1.8, Calcium 9.4, Total Bilirubin 1.0, AST 46, ALT 41, Alkaline Phosphatase 107, C-Reactive Protein 7.7 H, Total Protein 9.1 H, Albumin 5.9 H, Globulin 3.2, Albumin/Globulin Ratio 1.8, Lipase 41 12/25/24 07:44: SARS-CoV-2 (PCR) Not detected, Influenza A Untype (PCR) Not detected, Influenza Type B (PCR) Not detected 12/25/24 10:15: Urine Color Yellow, Urine Appearance Clear, Urine pH 6.0, Ur Specific [place] 1.020, Urine Protein Negative, Urine Glucose (UA) Negative, Urine Ketones 2+, Urine Blood Trace-i, Urine Nitrate Negative, Urine Bilirubin Negative, Urine Urobilinogen 0.2, Ur Leukocyte Esterase Negative, Urine RBC Occasional, Urine WBC Occasional, Ur Squamous Epith Cells Occasional, Urine Bacteria Trace Assessment and Plan *Assessment and plan (1) Appendicitis: Status: Acute Category: Medical Code(s): K37 - Unspecified appendicitis Plan I reviewed his CT scan. He likely has uncomplicated early acute appendicitis. Recommendations would be for urgent laparoscopic possibly open appendectomy. Initially patient was somewhat hesitant to proceed. With additional discussion he was agreeable. Nature and details of the proposed procedure along with associated risks and expected outcome were explained to the patient. I also explained to him that he could have pathology including even colon cancer in the ascending colon. This will be assessed at the time.
--- NOTE | 2024-12-25 11:46 | PC.NURSE ---
dr pringle at bedside
--- NOTE | 2024-12-25 12:27 | P.PNANES_ITS ---
[facility] Disclaimer: The information contained in this section may have been updated after the patient was seen, as this information can be updated by other users. Medical History HLD (hyperlipidemia) Coronary artery disease HTN (hypertension) Social History Smoking Status: Current every day smoker tobacco type: cigarettes packs per day: 1 second hand exposure: No alcohol intake: never substance use type: marijuana current occupational status: other Travel in the last 8 weeks?: None household members: spouse housing: house current occupational exposures/hazards: Yes caffeine: Yes Have you lived/traveled outside US in past 30 days?: No Contact w/someone who lives/traveled outside US past 30 days?: No Exposure to someone with infectious disease in past 14 days?: No Do you have a fever (greater than 100.4 F or 38 C)?: No Have you tested positive for COVID-19?: No Exposed to someone with COVID-19 in past 14 days?: No Do you have a sore throat?: No Do you have a cough?: No Do you have any weakness?: No Do you have any diarrhea?: No Are you experiencing any unusual bleeding?: No Do you have any muscle aches/pain?: No Do you have any abdominal pain?: No Are you experiencing loss of taste or smell?: No [facility] Anesthesia Checklist Patient Identification Patient Identification: Arm Band and Verbal (Name & ) Structural Data Admitted From: Home Planned Operative Procedure/s: Laparoscopic Appendectomy Consent for Planned Operative Procedure(s) Verified: Yes Verified Documents: Surgical Consent NPO Status Verified Time NPO: 00:00 Chart Verification Results Verified: CBC and BMP Additional verifications Anesthesia Reactions: No Hx Blood Transfusions: No Blood Transfusion Reaction: No Airway Assessment Mallampati Score:: Class II C-Spine Mobility Assessed: Yes TMJ Mobility Assessed: Yes Dentition: Edentulous Neurological Assessment Level of Consciousness: Awake, Alert and Appropriate Hx Seizures: No Numbness or tingling in extremities: No 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
[2024-12-25] MEDS: LIDOCAINE 1% 20ML MDV 20 ML (13:03)
[2024-12-25] MEDS: SODIUM CHLORIDE IRRIG SOLUTION 3,000 ML 200 ML IR (13:04)
[2024-12-25] MEDS: AZTREONAM 1 GM in 0.9 % SODIUM CHLORIDE 50 ML IV (13:04)
--- NOTE | 2024-12-25 13:29 | EXP.OP.NOTE ---
Date of procedure: 12/25/24 Pre-op Diagnosis:: Acute appendicitis Post-op Diagnosis:: Same Procedure performed:: Laparoscopic appendectomy Surgeon:: Ralph Merida MD Anesthesia: GETA Estimated blood loss (mL): 10 Operative findings:: He had an acutely inflamed thickened indurated firm tense appendix. Right colon appeared normal. Operative note:: Consent was obtained patient was taken the operating room. He was given preoperative intravenous antibiotics. In the operating room he was placed in a supine position. General anesthesia was induced via endotracheal tube. Epstein catheter was placed. Abdomen was prepped and draped in the standard surgical fashion. Infraumbilical skin incision was made and while performing abdominal wall lift Veress needle was inserted. CO2 pneumoperitoneum was achieved to 15 mmHg. 12 mm optical trocar was inserted. Laparoscopic surveillance was carried out. 5 mm trocar was inserted in the left lower abdomen and in the right upper abdomen under laparoscopic visualization. 0 degree 10 mm laparoscope was replaced with a 5 mm 30 degree laparoscope and inserted through the right upper abdominal trocar site. Was positioned in Trendelenburg position. Omentum was swept superiorly. Appendix was identified. It was very firm and tense. Quite indurated and inflamed but without necrosis or perforation. It was grasped with an endoscopic [place]. The mesoappendix was carefully divided with ultrasonic harmonic rima. Care was taken to coagulate the appendiceal artery in the process. Dissection was carried down to the base of the appendix. The appendix was divided at its base with endoscopic MARIA ESTHER linear cutting stapling device. The appendix was placed in an Endo Catch retrieval device and removed from the peritoneal cavity via the umbilical trocar site which required some extension of the fascial incision for delivery. Appendiceal staple line was inspected for hemostasis and integrity which was assured. Limited irrigation was performed. Trocars were then removed as CO2 pneumoperitoneum was evacuated. Fascia at the umbilicus was closed with a couple of 0 Vicryl sutures. Local anesthetic was infiltrated. Skin incision was closed with 4-0 Monocryl in a subcuticular fashion. A couple of 5-0 fast-absorbing plain gut sutures were placed for epidermal closure. Steri-Strips and dressings were applied. Condition: stable Disposition: PACU Complications:: None immediately apparent
--- NOTE | 2024-12-25 13:35 | P.PNANES_ITS ---
[facility] Anesthesia Record Part I Anesthesia Record I Intake, IV Amount: 500 Hydration: Adequate Estimated blood loss (mL): 0 Urine output (mL): 0 Blood Products used (#): none Blood Pressure: 102/69 SaO2: 95 Pulse Rate: 96 Airway Patency: Patent Respiratory Rate: 14 Temperature: 99.1 F Patient is:: Drowsy and Stable Stable to PACU at:: 13:32
[2024-12-25 14:51] LABS: Microscopic,Cath URINE MICROSCOPIC (MICROSCOPIC)
[2024-12-25 15:09] LABS: Appearance,Urine/Cath CLEAR (Clear); Bilirubin,Cath Negative (Negative); Blood, Urine/Cath 1+ (Negative); Color,Urine/Cath YELLOW (Yellow); Glucose,Urine/Cath (UA) Negative (Negative); Ketones,Urine/Cath 3+ (Negative); Leukocyte Esterase,Cath Negative (Negative); Nitrate,Cath Negative (Negative); PH,Urine/Cath 6.0 (5.0-8.5); Protein,Urine/Cath Negative (Negative); Specific Gravity, Urine/Cath 1.015 (1.005-1.030); Urobilinogen,Cath 0.2 EU/dl (0.2)
[2024-12-25 17:19] LABS: Hepatitis C Ab Qual. W/ RFX REACTIVE (Negative)
--- NOTE | 2024-12-26 07:28 | P.PNANES_ITS ---
[facility] Anesthesia Record Part II Anesthesia Record Part II Discharge Time: 14:31 Destination: Surgical Day Care (OP Surgery) PACU nurse assessment reviewed?: Yes Patient Condition:: Good Anesthesia Complications:: None Swallowing reflex intact?: Yes Airway Patency: Patent Cyanosis?: No Blood Pressure: 141/73 SaO2: 97 Respiratory Rate: 18 Pulse Rate: 75 Temperature: 97.8 F Mental Status: Alert & Oriented Pain level:: 0 Nausea and/or vomitting:: None Intake, IV Amount: 0 Hydration: Adequate
[2024-12-26 07:29] VITALS: BP 141/73; PULSE 75; RESP 18; TEMP 36.6; O2SAT 97
== END 2024-12-25 14:34 | disposition home or self-care (01) ==
LOC: ER 07:28 → SDC 12:12
PROVIDERS: Emergency Provider Student in an Organized Health Care Education/Training Program; PCP Physician Assistant; Visit Provider Surgery
PROC: 0DTJ4ZZ Resection of Appendix, Percutaneous Endoscopic Approach (ICD-10-PCS; CPT 44970; principal; 2024-12-25 12:30)
DX: K35.80 Unspecified acute appendicitis (principal); E78.5 Hyperlipidemia, unspecified; I25.10 Atherosclerotic heart disease of native coronary artery without angina pectoris; I10 Essential (primary) hypertension; R00.1 Bradycardia, unspecified; Z88.6 Allergy status to analgesic agent; Z88.0 Allergy status to penicillin; F17.210 Nicotine dependence, cigarettes, uncomplicated; Z79.82 Long term (current) use of aspirin; Z79.899 Other long term (current) drug therapy
CPT/HCPCS: 44970; 51702; 74177; 80053; 81001; 83605; 83690; 85025; 86140; 86803; 87389; 87522; 87636; 93005; 99285; J0457; J1100; J1200; J1790; J2003; J2250; J2405; J2704; J2795; J3010; J7120; Q0162; Q9967

== ENCOUNTER 2025-01-08 10:10 | Outpatient (CLI) | payer OTHER, SELFPAY ==
[2025-01-08 11:19] LABS: Bilirubin,Direct 0.3 mg/dl (0.0-0.4); Bilirubin,Indirect 0.2 mg/dL (0.0-0.9); Bilirubin,Total 0.5 mg/dl (0.2-1.3); Bilirubin,Unconjugated 0.3 mg/dL (0.0-1.1)
[2025-01-08 11:20] LABS: Alanine Aminotransferase 29 U/L (12-78); Albumin Level 5.3 g/dl (3.5-5.0); Alkaline Phosphatase 78 U/L (38-126); Aspartate Amino Transferase 32 U/L (17-59); Cholesterol 126 mg/dl (140-200); HDL Cholesterol 49 mg/dl (40-60); Total Protein,Serum 8.3 g/dl (6.3-8.2); Triglycerides 69 mg/dl (30-150)
== END 2025-01-08 23:59 | disposition home or self-care (01) ==
LOC: LAB 10:11
PROVIDERS: PCP Physician Assistant; Visit Provider Physician Assistant
DX: E78.5 Hyperlipidemia, unspecified (principal); I25.10 Atherosclerotic heart disease of native coronary artery without angina pectoris
CPT/HCPCS: 36415; 80061; 80076